=== PATIENT | male | born 1965 | race Caucasian/White ===

== ENCOUNTER → 2021-08-21 15:53 | Outpatient (BNVA) | payer OTHER, SELFPAY | PROVIDERS: PCP Physician Assistant; Referring Provider Physician Assistant; Visit Provider Nurse Practitioner Family | DX: Z12.11 Encounter for screening for malignant neoplasm of colon (principal) ==

== ENCOUNTER 2021-08-27 07:42 | Outpatient (REF) | payer OTHER, SELFPAY ==
[2021-08-27 11:33] LABS: Hematocrit 44.3 % (42.0-52.0); Mean Corpuscular HGB Conc 33.9 g/dl (31.0-36.0); Mean Corpuscular Hemoglobin 31.4 pg (27.0-33.0); Mean Corpuscular Volume 92.9 fL (80.0-98.0); Mean Platelet Volume 9.6 fL (9.4-12.4); Platelet Count 253 X10*3/uL (160-400); Red Blood Count 4.77 X10*6/uL (4.60-5.80); Red Cell Distribution Width 12.3 % (11.0-16.0); White Blood Count 4.3 X10*3/uL (4.8-10.8)
[2021-08-27 11:49] LABS: Estimated Average Glucose 100 mg/dL; Hemoglobin A1c % 5.1 %
[2021-08-27 12:07] LABS: Creatinine Urine 103.73 mg/dL; Microalbum/Creatinine Ratio Ur 6.7 ug/mg cr
[2021-08-27 12:11] LABS: Alanine Aminotransferase 46 U/L (0-40); Albumin Level 4.6 g/dL (3.5-5.0); Alkaline Phosphatase 48 U/L (39-117); Anion Gap 13 (12-20); Aspartate Amino Transferase 33 U/L (5-37); Bilirubin Total 0.6 mg/dL (0.0-1.0); Blood Urea Nitrogen 9 mg/dL (9-16); Calcium 9.4 mg/dL (8.4-10.2); Carbon Dioxide 27 mmol/L (22-29); Chloride 104 mmol/L (96-108); Cholesterol 235 mg/dL; Estimated Glomerular Filt Rate > 60; Glucose Fasting 99 mg/dL (60-99); HDL Cholesterol 68 mg/dL; LDL Cholesterol Calculated 153 mg/dl; Potassium 4.6 mmol/L (3.3-5.1); Prostate Specific Antigen Scr 0.81 ng/mL (<0.05-4.0); Sodium 139 mmol/L (135-145); TSH reflex Free T4 1.21 uIU/mL (0.32-4.0); Total Protein 7.4 g/dL (6.5-8.0); Triglycerides 73 mg/dL
== END 2021-08-27 07:43 | disposition home or self-care (01) ==
LOC: HO.HMGCLDS 07:42
PROVIDERS: Visit Provider Physician Assistant
DX: Z12.5 Encounter for screening for malignant neoplasm of prostate (principal); I10 Essential (primary) hypertension; E78.9 Disorder of lipoprotein metabolism, unspecified
CPT/HCPCS: 36415; 80053; 80061; 82043; 83036; 84153; 84443; 85027

== ENCOUNTER → 2021-11-07 14:37 | Outpatient (REF) | payer OTHER, SELFPAY ==
--- NOTE | 2021-11-07 14:43 | CA_ITS ---
Transthoracic Echocardiogram Patient (Last, First, Middle): James Way, Gender: Male Date of : 1965 Age: 56 Procedure Date: 11/07/2021 Procedure Type: Transthoracic Echocardiogram Location: OP Height: 180.34 cm Weight: 81.65 kg BSA: 2.02 m2 Heart Rate: 62 bpm BP: 134 / 74 mmHg Car Salesperson: LÁZARO Referring MD: Cholo Perry PA-C Symptoms: I38 - Endocarditis, valve unspecified, pre procedure evaluation, hx MVP/MR Study Quality: Adequate ECG Rhythm: Sinus Conclusions: - The left ventricular systolic function is normal. The calculated ejection fraction is 70% by biplane method. - The mitral valve appears myxomatous. - Posterior mitral leaflet likely prolapsing but in some views also appears flail. - There is mild to moderate mitral valve regurgitation. Findings Left Ventricle Normal left ventricular cavity size. There is normal left ventricular wall thickness. The left ventricular systolic function is normal. The calculated ejection fraction is 70% by biplane method. There is no evidence of regional wall motion abnormalities. Diastolic function is normal for age. Right Ventricle Normal right ventricular cavity size and systolic function. Atria Both atria are normal in size. Interatrial shunt cannot be excluded. Aortic Valve There is a normal trileaflet aortic valve. There is no aortic valve stenosis. There is no aortic valve regurgitation. Mitral Valve The mitral valve appears myxomatous. There is mild anterior and posterior mitral leaflet thickening. There is mild to moderate mitral valve regurgitation. The mitral regurgitation jet is directed anteriorly. There is no mitral valve stenosis. Posterior mitral leaflet likely prolapsing but in some views also appears flail. Pulmonic Valve The pulmonic valve is likely normal. Tricuspid Valve Normal tricuspid valve structure. There is trace tricuspid valve regurgitation. The pulmonary artery systolic pressure is normal. Great Vessels The aortic annulus, sinuses of valsalva, asc aorta, and aortic arch are normal in size. Venous The inferior vena cava is normal in size and collapses greater than 50% with inspiration. Pericardium/Pleural There is no evidence of pericardial effusion. Prior Study Comparison No significant change compared to prior study dated: 03/09/2018. Measurements 2D Linear Measurements IVSd: 0.82 0.6-0.9/0.6-1.0 cm LVIDd: 5.57 3.9-5.3/4.2-5.9 cm LVIDd Index: 2.76 2.4-3.2/2.2-3.1 cm/m2 LVIDs: 3.66 2.0-3.6 cm LVPWd: 0.52 0.7-1.1 cm LA Diam: 4.10 2.7-3.8/3.0-4.0 cm LAIDs Index: 2.03 1.5-2.3 cm/m2 LV Mass: 163.86 67-162/88-224 g LV Mass Index: 81.12 43-95/49-115 g/m2 LVOT Diam: 2.60 3.0+(-)1.3 cm 2D Systolic Function EF 4C: 70.50 >55% EF 2C: 68.20 >55% EF BiP: 69.90 >55% Mitral Valve MV Pk E: 1.03 MV PK A: 0.48 MV Decel Time: 175.00 E/A: 2.20 E'Lateral: 9.14 E'Medial: 7.40 E/E' Med: 13.90 E/E' Lat: 11.30 PHT: 51.00 MVA PHT: 4.31 Decel [place]: 5.91 Aortic Valve AoV Pk Elmer: 1.29 AoV Mn Elmer: 0.81 AoV VTI: 0.23 AoV Pk Grad: 7.00 Aov Mn Grad: 3.00 ALESSANDRA Cont.VTI: 4.49 LVOT LVOT Pk Elmer: 1.07 LVOT Mn Elmer: 0.65 LVOT VTI: 0.19 LVOT Pk Grad: 5.00 LVOT Mn Grad: 2.00 LVOT Diam: 2.60 LVOT Area: 5.31 Diastolic Function MV Pk E: 1.03 MV Pk A: 0.48 E/A: 2.20 E'Medial: 7.40 E/E' Med: 13.90 E' Laterial: 9.14 E/E' Lat: 11.30 Right Ventricle TAPSE (mm): 28.90 TVS' Elmer: 15.30 Tricuspid Valve RA Press: 3.00 Great Vessels Aorta Sinus of Valsalva: 3.60 2.0-3.5 cm Ao Asc: 3.20 2.1-3.4 cm Pulmonary Veins Pulm Vein S/D 1.40 Pulmonary Valve PV Pk Elmer: 1.06 Peak PV Grad: 4.00 Updated in Other Vendor System with Status of Final Chris Carmichael MD electronically signed on 11/09/2021 11:41:23 AM with status of Final
== END ==
LOC: HO.CARD 14:37
PROVIDERS: PCP Physician Assistant; Visit Provider Physician Assistant
DX: I38 Endocarditis, valve unspecified (principal); R01.1 Cardiac murmur, unspecified
CPT/HCPCS: 93306

== ENCOUNTER → 2021-12-05 09:04 | Outpatient (BNVA) | payer OTHER, SELFPAY | PROVIDERS: PCP Physician Assistant; Visit Provider Internal Medicine Cardiovascular Disease | DX: R07.9 Chest pain, unspecified (principal); I10 Essential (primary) hypertension; I34.0 Nonrheumatic mitral (valve) insufficiency; R06.09 Other forms of dyspnea | CPT/HCPCS: 93005 ==

== ENCOUNTER → 2021-12-13 07:48 | Outpatient (REF) | payer OTHER, SELFPAY ==
--- NOTE | 2021-12-13 07:50 | CA_ITS ---
Acquisition Time: 2021-12-13 08:05:05 Total Exercise Time: 00:09:51 Test Indications: CP, SOB Medications: SEE CHART Protocol: RODRIGO Max HR: 162 BPM 98% of Pred: 165 BPM Max BP: 188/088 mmHG Max Work Load: 11.4 METS Exercise stress test with exercise 9 min 51 sec of Rodrigo protocol, achieving 96% MPHR, 11.4 METs, with mild to mod sob, no chest discomfort, with isolated PVC, with normotensive response to exercise, without EKG changes meeting criteria for ischemia. Test reviewed with Dr Galvez Referred By: Lino Escoto Overread By: ANTHONY CARDOZA
== END ==
LOC: HO.CARD 07:48
PROVIDERS: Visit Provider Internal Medicine Cardiovascular Disease
DX: R06.09 Other forms of dyspnea (principal)
CPT/HCPCS: 93017

== ENCOUNTER 2022-07-12 12:13 | Day surgery (SDC) | payer OTHER, SELFPAY ==
[2022-07-09 13:47] VITALS: BMI 25.7
--- NOTE | 2022-07-11 13:17 | HO.ANESPROP2 ---
[facility] Active Problems Active Problems: All Active Problems (Updated 07/11/22 @ 11:42 by Jen Titus RN) HTN (hypertension) (Acute) Borderline high cholesterol (Acute) Alcohol use disorder, mild, abuse (Acute) Colon cancer screening (Acute) Chewing tobacco nicotine dependence (Acute) Heart murmur (Acute) Diastolic murmur (Acute) Pain, dental (Acute) Mitral regurgitation (Acute) LUNDBERG (dyspnea on exertion) (Acute) Chest pain (Acute) Annual physical exam (Acute) Family history of colon cancer (Acute) Essential hypertension (Acute) Preop cardiovascular exam (Acute) Transaminitis (Acute) Past Medical History Medical History (Updated 07/11/22 @ 13:19 by Neelima Guerra NP) Alcohol use disorder, mild, abuse Elevated cholesterol HTN (hypertension) Mitral regurgitation Osteoarthritis Transaminitis Family History Family History Brother Colon cancer Social History Social History (Updated 02/06/22 @ 16:36 by Cholo Perry PA-C) Housing: House Alcohol intake: current Alcohol intake frequency: a few times a week Alcohol type: wine and hard liquor Patient Tobacco Use Status: Former Tobacco user Tobacco use type: Smokeless Tobacco e-Cigarette/Vaping Use: Never Used Second Hand Smoke Exposure: No service: No Current occupational status: employed Cognitive needs: No Hearing needs: No Vision needs: No Meds Allergies Allergy/AdvReac Type Severity Reaction Status Date / Time No Known Allergies Allergy Verified 02/06/22 16:29 [No Known Allergies*] Exam Exam Date and Time: July 11, 2022 1317 Height,Weight and Vital Signs: Height 5 ft 11 in Weight 83.915 kg Narrative Narrative: EKG 11/2021 Sinus bradycardia 57 beats per minute, normal axis, T-wave inversions in inferior leads, QT interval 459 milliseconds Echo: 11/07/21 - - The left ventricular systolic function is normal.? The ? calculated ejection fraction is 70% by biplane method. ? - The mitral valve appears myxomatous. ? - Posterior mitral leaflet likely prolapsing but in some views ? also appears flail.? - There is mild to moderate mitral valve regurgitation.? Stress 12/13/21: Protocol: ALBERT ? Max HR: 162 BPM? 98% of? Pred: 165 BPM Max BP: 188/088 mmHG Max Work Load: 11.4 METS ? Exercise stress test with exercise 9 min 51 sec of Albert protocol, achieving 96% ?MPHR, 11.4 METs, with mild to mod sob, no chest discomfort, with isolated PVC, ?with normotensive response to exercise, without EKG changes meeting criteria ?for ischemia. Test reviewed with Dr Galvez Assessment and Plan Assessment Anesthesia Assessment: Chart Reviewed
[2022-07-12] MEDS: Lactated Ringers 1,000 ML 100 ML IVCONT (12:48)
--- NOTE | 2022-07-12 12:55 | MHC.SHP ---
Pre-Procedural Eval Section A Date of Service: 07/12/22 The patient is an INPATIENT: No The History & Physical has been completed within 30 days and I have reviewed it.: No Section B Chief Complaint: screening Details of Present Illness: Colon cancer screening, family history of colon cancer Relevant Family History (Specify if Yes): Yes Relevant Social History: Tobacco Use Present Medications: see Short Stay Collaborative assessment Medical History: Significant History ( transaminitis, hypertension, mitral regurgitation) History of Previous Operations: No relevant previous surgery Allergies: Allergies Allergy/AdvReac Type Severity Reaction Status Date / Time No Known Allergies Allergy Verified 02/06/22 16:29 [No Known Allergies*] Review of Systems Sugical H&P ROS: Negative: Constitution, Cardiovascular, Respiratory and Gastrointestinal Exam Surgical H&P Exam: Normal: Heart, Normal: Lungs, Normal: Extremities and Normal: Abdomen Plan Diagnosis/Plan: Unchanged I have reviewed the history and physical and performed a pertinent physical examination on my patient. No changes have occurred unless specified. Time Spent With Patient Time: Total time managing care of this patient today ____ minutes.
[2022-07-12 12:57] VITALS: BP 157/92; PULSE 73; RESP 18; TEMP 36.7; O2SAT 97
--- NOTE | 2022-07-12 13:06 | PC.NURSE ---
IV inserted by amee whitmore rn
--- NOTE | 2022-07-12 13:32 | PC.NURSE ---
Patient admits to drinking approx. 4-5 alcoholic drinks (beer/wine) daily. He states that he has not had any since Friday. Patient states I actually feel really good. VS wnl. No shaking or hallucinating noted. alert and oriented X 3. No ciwa intervention available to add.
--- NOTE | 2022-07-12 13:44 | P.OP_ITS ---
Operative Note Operative Note Date of Service: 07/12/22 Narrative: COLONOSCOPY TILL CECUM WITH BIOPSIES AND SNARE POLYPECTOMY Indication:? Colon cancer screening, FH of colon cancer (brother at age 50 yrs) Endoscopist:? Tesha Dominguze MD Anesthesia Provider:?Dr Dunn Anesthesia type:?MAC Consent: Indications for the procedure and potential complications of bleeding, perforation, reaction to medications and missed diagnosis were discussed with the patient and informed consent was obtained. Instrument: Olympus PCF H 190 L variable stiffness pediatric colonoscope Monitoring: Vital signs and clinical assessment, intermittent blood pressure monitoring, continuous EKG monitoring, Pulse oximetry and Carbon Dioxide monitoring were done throughout the procedure. Please see anesthesia flowsheet. Colon withdrawl time was 28 minutes. Procedure: The patient was placed in the left lateral decubitis position and pre-procedure medications were administered. After a digital rectal examination of the ano-rectum, the video colonoscope was inserted into the rectum and advanced through the colon to the cecum. The colonoscope was slowly withdrawn in a retrograde panoramic fashion and the colon mucosa was carefully examined including a retroflexed view of the rectum. Findings and interventions are described below. Procedure Difficulty: Without difficulty Findings: Terminal Ileum: Not evaluated Cecum: Normal Ascending Colon: Normal Transverse Colon: Two 3-5 mm sessile polyps - removed with a cold biopsy Descending Colon: Normal Sigmoid Colon: Two 4-5 mm sessile polyps - removed with a cold biopsy. A 10 - 12 mm sessile polyp - removed with a cold snare Moderate diverticulosis Rectum: Normal Ano-rectum: Moderate internal hemorrhoids Colon preparation: Good after copious irrigation Impression and Post Procedure Diagnosis: Colonoscopy Findings: Four small and one medium sized polyps removed Moderate diverticulosis seen in the sigmoid colon Moderate hemorrhoids on retroflexed exam. Plan: Await pathology results Patient has an appointment on 07/26/22 in the GI [facility] with Nesha Ramírez FNP- BC . Repeat Colonoscopy interval based on path results - in 3-5 years if polyps are adenomatous and 10 years if polyps are hyperplastic. Colon polyps and diverticulosis handouts were given in the discharge area PATHOLOGY: A- TRANSVERSE COLON POLYPS B- SIGMOID POLYPS
--- NOTE | 2022-07-12 13:45 | HO.ANESPROP2 ---
HPI - Anesthesia Eval Consult details Narrative: for colonoscopy [facility] Active Problems Active Problems: All Active Problems (Updated 07/11/22 @ 13:19 by Neelima Guerra NP) Alcohol use disorder, mild, abuse (Acute) HTN (hypertension) (Acute) Borderline high cholesterol (Acute) Colon cancer screening (Acute) Chewing tobacco nicotine dependence (Acute) Heart murmur (Acute) Diastolic murmur (Acute) Pain, dental (Acute) LUNDBERG (dyspnea on exertion) (Acute) Chest pain (Acute) Annual physical exam (Acute) Family history of colon cancer (Acute) Essential hypertension (Acute) Preop cardiovascular exam (Acute) Transaminitis (Acute) Past Medical History Medical History (Updated 07/11/22 @ 13:19 by Neelima Guerra NP) Alcohol use disorder, mild, abuse Elevated cholesterol HTN (hypertension) Mitral regurgitation Osteoarthritis Transaminitis Narrative: still drinks 4-5/ day. Family History Family History Brother Colon cancer Family history of problems with anesthesia: No Surgical History History of Problems with Anesthesia: No Social History Social History (Updated 02/06/22 @ 16:36 by Cholo Perry PA-C) Housing: House Alcohol intake: current Alcohol intake frequency: a few times a week Alcohol type: wine and hard liquor Patient Tobacco Use Status: Former Tobacco user Tobacco use type: Smokeless Tobacco e-Cigarette/Vaping Use: Never Used Second Hand Smoke Exposure: No Are you DNR?: No Advance Directives: No Advance Directives Information Provided: Yes Nutrition Risks: No Nutritional Risk service: No Current occupational status: employed Cognitive needs: No Hearing needs: No Vision needs: No Meds Allergies Allergy/AdvReac Type Severity Reaction Status Date / Time No Known Allergies Allergy Verified 02/06/22 16:29 [No Known Allergies*] Active Medications: Current Medications Lactated Ringer's (Lr) 1,000 mls @ 100 mls/hr IVCONT .Q10H POLO Last Admin: 07/12/22 12:48 Dose: 100 mls/hr Exam Exam Date and Time: July 12, 2022 1345 Height,Weight and Vital Signs: Height 5 ft 11 in Weight 83.915 kg Last Vital Signs Temp 98.1 F 07/12/22 12:57 Pulse 73 07/12/22 12:57 Resp 18 07/12/22 12:57 BP 157/92 H 07/12/22 12:57 Pulse Ox 97 07/12/22 12:57 O2 Del Method Room Air 07/12/22 12:57 Airway Mallampati Class: I TM Dist: >3cm Neck ROM: Full Heart: ok Lungs: ok Assessment and Plan Assessment Anesthesia Assessment: Anesthesia Plan Discussed and Chart Reviewed Final Anesthetic Review Family History of Problems with Anesthesia: No History of Problems with Anesthesia: No NPO: Yes ASA Class: III Final Preanesthetic Review: No Changes in Pt Med Stat, Meds/Allgs Chart Reviewed, Consent Obtained/Reviewed and Anes Risks/Benef Reviewed Patient Risk: Intermediate Procedure Risk: Low Anesthetic Plan Anesthetic Plan: MAC: and Agree w/ Assess. and Plan Disposition: Standard PACU
[2022-07-12 14:48] VITALS: BP 109/73; PULSE 82; RESP 20; TEMP 36.3; O2SAT 98
[2022-07-12 15:03] VITALS: BP 132/80; PULSE 64; RESP 16; TEMP 36.9; O2SAT 98
== END 2022-07-12 15:22 | disposition home or self-care (01) ==
PROVIDERS: PCP Physician Assistant; Visit Provider Internal Medicine Gastroenterology
PROC: 0DJD8ZZ Inspection of Lower Intestinal Tract, Via Natural or Artificial Opening Endoscopic (ICD-10-PCS; CPT 45378; principal; 2022-07-12 13:40)
DX: Z12.11 Encounter for screening for malignant neoplasm of colon (principal); Z80.0 Family history of malignant neoplasm of digestive organs; K63.5 Polyp of colon; K57.30 Diverticulosis of large intestine without perforation or abscess without bleeding; K64.8 Other hemorrhoids; R74.01 Elevation of levels of liver transaminase levels; I10 Essential (primary) hypertension; I34.0 Nonrheumatic mitral (valve) insufficiency; R01.1 Cardiac murmur, unspecified; F10.10 Alcohol abuse, uncomplicated; Z79.899 Other long term (current) drug therapy; Z72.0 Tobacco use
CPT/HCPCS: 45385; 45380; 88305

== ENCOUNTER → 2022-08-02 13:53 | Outpatient (BNVA) | payer OTHER, SELFPAY | PROVIDERS: PCP Physician Assistant; Visit Provider Nurse Practitioner Family | DX: Z13.89 Encounter for screening for other disorder (principal) ==

== ENCOUNTER 2022-08-04 16:23 | Emergency (ER) | payer OTHER, SELFPAY ==
--- NOTE | ~2022-08-04 | XR_ITS ---
EXAMINATION: XR ABDOMEN KUB CLINICAL INDICATION: Constipation COMPARISON: None available. TECHNIQUE: AP view of the abdomen. FINDINGS: The bowel gas pattern is normal with no evidence of ileus or obstruction. No unusual soft tissue calcifications are noted. The bones are unremarkable. XR/XR KUB IMPRESSION: Unremarkable bowel gas pattern.
[2022-08-04 16:50] VITALS: BP 124/83; PULSE 80; RESP 18; TEMP 36.4; O2SAT 96; BMI 24.8
--- NOTE | 2022-08-04 16:53 | ED_ITS ---
HPI - General Adult General Chief complaint: Nausea/Vomiting/Diarrhea <Russel Obrien - Last Filed: 08/04/22 16:54> Stated complaint: vomiting <Russel Obrien - Last Filed: 08/04/22 16:54> Time Seen by Provider: 08/04/22 18:31 <Russel Obrien - Last Filed: 08/04/22 16:54> Source: patient <Rich Albert MD - Last Filed: 08/04/22 20:45> Mode of arrival: ambulatory <Rich Albert MD - Last Filed: 08/04/22 20:45> Limitations: no limitations <Rich Albert MD - Last Filed: 08/04/22 20:45> History of Present Illness HPI narrative: Patient alcoholic comes here for increased fatigue and weight loss about 10 lb in last 1 month. Patient was seen by wastewater process engineer 2 days ago advised to take more fiber for his bowel regularity. According to records patient weight was 82 kg in 08/03 and today's 80.7 kg no significant weight loss. Patient denies any loss of appetite eating well patient's girlfriend is concerned patient drinks alcohol every day noted to have elevated liver functions also complaining of nausea no significant abdominal pain having regular bowel movements most of the time they are loose <Rich Albert MD - Last Filed: 08/04/22 20:45> Related Data Home medications: Previous Rx's Medication Instructions Recorded lisinopril 20 1 tab PO DAILY 90 days #90 tabs 02/06/22 mg-hydrochlorothiazide 12.5 mg tablet methylcellulose (laxative) 500 mg 500 mg PO DAILY #90 tabs 08/02/22 tablet (Citrucel) ondansetron 4 mg disintegrating 4 mg PO Q6-8H PRN nausea and 08/04/22 tablet vomiting #10 tabs pantoprazole 40 mg tablet,delayed 40 mg PO DAILY #30 tabs 08/04/22 release (Protonix) <Russel Obrien - Last Filed: 08/04/22 16:54> Allergies/adverse reactions: Allergies Allergy/AdvReac Type Severity Reaction Status Date / Time No Known Allergies Allergy Verified 08/04/22 16:50 [No Known Allergies*] <Russel Obrien - Last Filed: 08/04/22 16:54> Review of Systems Review of Systems: Yes all other systems are reviewed and are negative <Rich Albert MD - Last Filed: 08/04/22 20:45> [facility] Past Medical History Medical History: Medical History Alcohol use disorder, mild, abuse Elevated cholesterol HTN (hypertension) Mitral regurgitation Osteoarthritis Transaminitis <Russel Obrien - Last Filed: 08/04/22 16:54> Surgical History: Surgical History Hx of colonoscopy <Russel Obrien - Last Filed: 08/04/22 16:54> Family History Family History: Family History Brother Colon cancer <Russel Obrien - Last Filed: 08/04/22 16:54> Social History Social History: Social History Housing: House Alcohol intake: current Alcohol intake frequency: 3 or more drinks per day Alcohol type: wine and hard liquor Patient Tobacco Use Status: Former Tobacco user Tobacco use type: Smokeless Tobacco Smoked in Last 30 Days: No e-Cigarette/Vaping Use: Never Used Second Hand Smoke Exposure: No Use of substances other than those prescribed or required for medical reasons: No Advance Directives: No Advance Directives Information Provided: Yes service: No Current occupational status: employed Cognitive needs: No Hearing needs: No Vision needs: No <Russel Obrien - Last Filed: 08/04/22 16:54> Physical Exam ED Vital Signs: Vital Signs - 24 hr 08/04/22 16:50 08/04/22 18:00 Temperature 97.5 F 98.3 F Pulse Rate 80 70 Respiratory Rate 18 18 Blood Pressure 124/83 140/89 H Pulse Oximetry 96 96 Oxygen Delivery Method Room Air Room Air BMI result Body Mass Index 24.8 <Russel Obrien - Last Filed: 08/04/22 16:54> Vital Signs - 24 hr 08/04/22 16:50 08/04/22 18:00 Temperature 97.5 F 98.3 F Pulse Rate 80 70 Respiratory Rate 18 18 Blood Pressure 124/83 140/89 H Pulse Oximetry 96 96 Oxygen Delivery Method Room Air Room Air BMI result Body Mass Index 24.8 <Rich Albert MD - Last Filed: 08/04/22 20:45> Appearance: Alert. Oriented X3. No acute distress. Eyes: PERRLA, No Nystagmus no pallor or icterus ENT: Pharynx normal. Oral Mucosa moist Neck: Normal inspection. Neck supple. CVS: Normal heart rate and rhythm. Pulses normal. Respiratory: No respiratory distress. Equal air entry bilateral, no wheezing/rales/rhonchi Abdomen: Soft and nontender. Bowel sounds are present, no mass palpable, no CVA tenderness Skin: Skin warm and dry. Normal skin color. Normal skin turgor. Extremities: No lower extremity edema. No calf tenderness Neuro: Oriented X 3. No motor deficit. No sensory deficit.No cerebellar signs , cranial nerves II-XII intact <Rich Albert MD - Last Filed: 08/04/22 20:45> Course Course Course Narrative: This 56-year-old male presents for evaluation of vomiting every morning for the last month. He denies any sharp pains. He follows with GI and had a colonoscopy 2 weeks ago but did not mention his current issues. Reports a 10 lb weight loss in the last month. The colonoscopy was due to a family history of colon cancer and was routine. Plan for labs, UA and further workup as indicated <Russel Obrien - Last Filed: 08/04/22 16:54> Medical Decision Making Medical Decision Making MDM Narrative: Patient with alcohol use disorder with slightly elevated liver function tests suggestive of alcoholic hepatitis. Patient advised to stop drinking will prescribe Zofran and Protonix for alcoholic gastritis advised to follow with GI <Rich Albert MD - Last Filed: 08/04/22 20:45> Lab Data [facility] Lab Attestation statement: I reviewed the patient's lab results. <Rich Albert MD - Last Filed: 08/04/22 20:45> Result Diagrams: 08/04/22 17:21 08/04/22 17:21 <Russel Obrien - Last Filed: 04/23/23 16:54> Labs: Lab Results 08/04/22 08/04/22 Range/Units 17:21 17:21 WBC 5.3 (4.8-10.8) X10*3/uL RBC 4.53 L (4.60-5.80) X10*6/uL Hgb 14.8 (14.0-18.0) g/dl Hct 42.6 (42.0-52.0) % MCV 94.0 (80.0-98.0) fL MCH 32.7 (27.0-33.0) pg MCHC 34.7 (31.0-36.0) g/dl RDW 12.7 (11.0-16.0) % Plt Count 208 (160-400) X10*3/uL MPV 8.8 L (9.4-12.4) fL Immature Gran % (Auto) 0.2 (0.0-0.4) % Neut % (Auto) 44.8 L (45-73) % Lymph % (Auto) 42.3 H (20-40) % [place] % (Auto) 9.6 (2-11) % Eos % (Auto) 2.3 (0-4) % Baso % (Auto) 0.8 (0-2) % Lymph # (Auto) 2.3 (1.2-4.9) X10*3/uL [place] # (Auto) 0.5 (0.1-1.2) X10*3/uL Eos # (Auto) 0.1 (0.0-0.4) X10*3/uL Baso # (Auto) 0.0 (0.0-0.2) X10*3/uL Abs Immat Gran (auto) 0.01 (0.00-0.03) X10*3/uL Absolute Neuts (auto) 2.4 (2.0-8.3) x10*3/uL Absolute Nucleated RBC 0.000 (0.0-0.012) X10*3/uL Nucleated RBC % (auto) 0.0 (0.0-0.2) /100WBC Sodium 139 (135-145) mmol/L Potassium 4.2 (3.3-5.1) mmol/L Chloride 104 (96-108) mmol/L Carbon Dioxide 26 (22-29) mmol/L Anion Gap 13 (12-20) BUN 14 (9-16) mg/dL Creatinine 0.89 (0.5-1.4) mg/dL Estim Creat Clear Calc 99.8 Estimated GFR > 60 Random Glucose 99 (60-115) mg/dL Calcium 8.7 D (8.4-10.2) mg/dL Total Bilirubin 0.5 (0.0-1.0) mg/dL AST 192 H (5-37) U/L ALT 122 H (0-40) U/L Alkaline Phosphatase 62 (39-117) U/L Total Protein 6.7 (6.5-8.0) g/dL Albumin 4.2 (3.5-5.0) g/dL Lipase 63 (8-78) U/L <Russel Obrien - Last Filed: 08/04/22 16:54> Lab Results 08/04/22 08/04/22 Range/Units 17:21 17:21 WBC 5.3 (4.8-10.8) X10*3/uL RBC 4.53 L (4.60-5.80) X10*6/uL Hgb 14.8 (14.0-18.0) g/dl Hct 42.6 (42.0-52.0) % MCV 94.0 (80.0-98.0) fL MCH 32.7 (27.0-33.0) pg MCHC 34.7 (31.0-36.0) g/dl RDW 12.7 (11.0-16.0) % Plt Count 208 (160-400) X10*3/uL MPV 8.8 L (9.4-12.4) fL Immature Gran % (Auto) 0.2 (0.0-0.4) % Neut % (Auto) 44.8 L (45-73) % Lymph % (Auto) 42.3 H (20-40) % [place] % (Auto) 9.6 (2-11) % Eos % (Auto) 2.3 (0-4) % Baso % (Auto) 0.8 (0-2) % Lymph # (Auto) 2.3 (1.2-4.9) X10*3/uL [place] # (Auto) 0.5 (0.1-1.2) X10*3/uL Eos # (Auto) 0.1 (0.0-0.4) X10*3/uL Baso # (Auto) 0.0 (0.0-0.2) X10*3/uL Abs Immat Gran (auto) 0.01 (0.00-0.03) X10*3/uL Absolute Neuts (auto) 2.4 (2.0-8.3) x10*3/uL Absolute Nucleated RBC 0.000 (0.0-0.012) X10*3/uL Nucleated RBC % (auto) 0.0 (0.0-0.2) /100WBC Sodium 139 (135-145) mmol/L Potassium 4.2 (3.3-5.1) mmol/L Chloride 104 (96-108) mmol/L Carbon Dioxide 26 (22-29) mmol/L Anion Gap 13 (12-20) BUN 14 (9-16) mg/dL Creatinine 0.89 (0.5-1.4) mg/dL Estim Creat Clear Calc 99.8 Estimated GFR > 60 Random Glucose 99 (60-115) mg/dL Calcium 8.7 D (8.4-10.2) mg/dL Total Bilirubin 0.5 (0.0-1.0) mg/dL AST 192 H (5-37) U/L ALT 122 H (0-40) U/L Alkaline Phosphatase 62 (39-117) U/L Total Protein 6.7 (6.5-8.0) g/dL Albumin 4.2 (3.5-5.0) g/dL Lipase 63 (8-78) U/L <Rich Albert MD - Last Filed: 08/04/22 20:45> Discharge Plan Discharge Clinical Impression: Alcoholic liver disease <Russel Obrien - Last Filed: 08/04/22 16:54> Patient Disposition: Home, Self-Care <Russel Obrien - Last Filed: 08/04/22 16:54> Instructions: Alcohol Use Disorder (ED), Alcoholic Hepatitis (ED) <Russel Obrien - Last Filed: 08/04/22 16:54> Additional Instructions: Stop drinking alcohol Follow-up with your gastroenterology Medicine for nausea as prescribed <Russel Obrien - Last Filed: 08/04/22 16:54> Prescriptions: New pantoprazole [Protonix] 40 mg tablet,delayed release (DR/EC) 40 mg PO DAILY Qty: 30 0RF ondansetron 4 mg tablet,disintegrating 4 mg PO Q6-8H PRN (Reason: nausea and vomiting) Qty: 10 0RF No Action lisinopril-hydrochlorothiazide 20-12.5 mg tablet 1 tab PO DAILY 90 Days Qty: 90 2RF Citrucel 500 mg tablet 500 mg PO DAILY Qty: 90 3RF Rx Instructions: take it with full glass of water <Russel Obrien - Last Filed: 08/04/22 16:54> Interventions: ED Discharge Assessment Last Done: 08/04/22 20:37 <Russel Obrien - Last Filed: 08/04/22 16:54> Discharge Date/Time: 08/04/22 20:37 <Russel Obrien - Last Filed: 08/04/22 16:54>
[2022-08-04 17:28] LABS: MANUAL DIFF FLAG NO
[2022-08-04 17:29] LABS: Basophils Percent Auto 0.8 % (0-2); Eosinophils Absolute Auto 0.1 X10*3/uL (0.0-0.4); Eosinophils Percent Auto 2.3 % (0-4); Hematocrit 42.6 % (42.0-52.0); Hemoglobin 14.8 g/dl (14.0-18.0); Imm Gran Abs Auto 0.01 X10*3/uL (0.00-0.03); Imm Gran Pct Auto 0.2 % (0.0-0.4); Lymphocytes Absolute Auto 2.3 X10*3/uL (1.2-4.9); Lymphocytes Percent Auto 42.3 % (20-40); Mean Corpuscular HGB Conc 34.7 g/dl (31.0-36.0); Mean Corpuscular Hemoglobin 32.7 pg (27.0-33.0); Mean Platelet Volume 8.8 fL (9.4-12.4); Monocytes Absolute Auto 0.5 X10*3/uL (0.1-1.2); Monocytes Percent Auto 9.6 % (2-11); Neutrophils Absolute Auto 2.4 x10*3/uL (2.0-8.3); Neutrophils Percent Auto 44.8 % (45-73); Platelet Count 208 X10*3/uL (160-400); Red Blood Count 4.53 X10*6/uL (4.60-5.80); Red Cell Distribution Width 12.7 % (11.0-16.0); White Blood Count 5.3 X10*3/uL (4.8-10.8)
[2022-08-04 17:48] LABS: Alanine Aminotransferase 122 U/L (0-40); Albumin Level 4.2 g/dL (3.5-5.0); Alkaline Phosphatase 62 U/L (39-117); Anion Gap 13 (12-20); Aspartate Amino Transferase 192 U/L (5-37); Bilirubin Total 0.5 mg/dL (0.0-1.0); Blood Urea Nitrogen 14 mg/dL (9-16); Calcium 8.7 mg/dL (8.4-10.2); Carbon Dioxide 26 mmol/L (22-29); Chloride 104 mmol/L (96-108); Creatinine Clr Calc Pharmacy 99.8; Estimated Glomerular Filt Rate > 60; Glucose Random 99 mg/dL (60-115); Lipase 63 U/L (8-78); Potassium 4.2 mmol/L (3.3-5.1); Sodium 139 mmol/L (135-145); Total Protein 6.7 g/dL (6.5-8.0)
[2022-08-04 18:00] VITALS: BP 140/89; PULSE 70; RESP 18; TEMP 36.8; O2SAT 96
--- NOTE | 2022-08-04 18:47 | PC.NURSE ---
pt AOx3, reporting nausea x1 month and chronic diarrhea. imaging ordered. Vitals stable.
== END 2022-08-04 20:37 | disposition home or self-care (01) ==
PROVIDERS: Physician Assistant; Emergency Provider Internal Medicine; PCP Physician Assistant
DX: K70.9 Alcoholic liver disease, unspecified (principal); R79.89 Other specified abnormal findings of blood chemistry; R11.2 Nausea with vomiting, unspecified; R10.9 Unspecified abdominal pain; R53.83 Other fatigue; Z87.891 Personal history of nicotine dependence; Z79.899 Other long term (current) drug therapy
CPT/HCPCS: 36415; 74018; 80053; 83690; 85025; 99284

== ENCOUNTER 2022-09-06 06:39 | Outpatient (REF) | payer OTHER, SELFPAY ==
[2022-09-06 11:37] LABS: Hematocrit 44.8 % (42.0-52.0); Hemoglobin 14.9 g/dl (14.0-18.0); Mean Corpuscular HGB Conc 33.3 g/dl (31.0-36.0); Mean Corpuscular Volume 96.3 fL (80.0-98.0); Mean Platelet Volume 10.1 fL (9.4-12.4); Platelet Count 235 X10*3/uL (160-400); Red Blood Count 4.65 X10*6/uL (4.60-5.80); Red Cell Distribution Width 11.9 % (11.0-16.0)
[2022-09-06 11:54] LABS: Alanine Aminotransferase 33 U/L (0-40); Albumin Level 4.3 g/dL (3.5-5.0); Alkaline Phosphatase 55 U/L (39-117); Anion Gap 13 (12-20); Aspartate Amino Transferase 24 U/L (5-37); Bilirubin Direct 0.1 mg/dL (0.0-0.5); Bilirubin Total 0.5 mg/dL (0.0-1.0); Blood Urea Nitrogen 7 mg/dL (9-16); Calcium 9.7 mg/dL (8.4-10.2); Carbon Dioxide 27 mmol/L (22-29); Chloride 105 mmol/L (96-108); Cholesterol 242 mg/dL; Estimated Glomerular Filt Rate > 60; Glucose Fasting 110 mg/dL (60-99); HDL Cholesterol 50 mg/dL; LDL Cholesterol Calculated 176 mg/dl; Potassium 4.5 mmol/L (3.3-5.1); Sodium 140 mmol/L (135-145); Triglycerides 82 mg/dL
[2022-09-06 12:11] LABS: Prostate Specific Antigen Scr 0.75 ng/mL (<0.05-4.0)
[2022-09-06 12:20] LABS: Creatinine Urine 208.82 mg/dL; Microalbum/Creatinine Ratio Ur 6.2 ug/mg cr
== END 2022-09-06 06:40 | disposition home or self-care (01) ==
LOC: HO.HMGCLDS 06:39
PROVIDERS: PCP Physician Assistant; Visit Provider Physician Assistant
DX: I10 Essential (primary) hypertension (principal); E78.9 Disorder of lipoprotein metabolism, unspecified; F10.10 Alcohol abuse, uncomplicated; Z12.5 Encounter for screening for malignant neoplasm of prostate
CPT/HCPCS: 36415; 80053; 80061; 80076; 82043; 82248; 84153; 84443; 85027

== ENCOUNTER 2023-03-03 13:11 | Outpatient (AMB) | payer OTHER, SELFPAY ==
--- NOTE | 2023-03-03 13:22 | AM.OFFWIN_ITS ---
Intake Vital Signs 03/03/23 13:23 Height 5 ft 11 in Weight 184 lb BMI 25.7 BP 156/88 H Blood Pressure Location Lt brachial Position Sitting Pulse 80 Pulse Source Pulse Oximeter Temp 97.6 F Temp Source Temporal Artery Scan Pulse Oximetry (%) 98 Oxygen Delivery Method Room Air Intake Visit Reasons: EP, congestion, cough ([phone]) Intake Note: pt is here for c/o cough and congestion, with chest congestion Patient Tobacco Use Status: Former Tobacco user Allergies No Known Allergies [No Known Allergies*] Allergy (Verified 03/03/23 13:23) Do you need a note to return to daycare/school/sports/work: Yes HPI EP, congestion, cough ([phone]) HPI Details 57-year-old male patient presents today for a sick visit. He reports a 1 week history of worsening cough, now with yellow sputum. States he has been taking lhwa-ojl-rkomwdz Mucinex without relief. Denies any fever or chills. Denies any GI symptoms. Has noted now he is getting a sore throat and some bilateral ear pain. COVID tests x3 at home have been negative. Denies any known exposure to sick contacts. Denies any shortness of breath, chest pain, wheezing. [facility], LATER [facility] Medical History Osteoarthritis Elevated cholesterol HTN (hypertension) Mitral regurgitation Transaminitis Alcohol use disorder, mild, abuse Surgical History Hx of colonoscopy Family History Brother Colon cancer Social History Housing: House Alcohol intake: former Year quit: 2022 Patient Tobacco Use Status: Former Tobacco user Tobacco use type: Smokeless Tobacco e-Cigarette/Vaping Use: Never Used Second Hand Smoke Exposure: No service: No Current occupational status: employed Current occupational exposures/hazards: No Cognitive needs: No Hearing needs: No Vision needs: No Review of Systems Const All systems reviewed & are unremarkable except as noted in HPI and below Physical Exam Vital Signs: Last Vital Signs Temp 97.6 F 03/03/23 13:23 Pulse 80 03/03/23 13:23 BP 156/88 H 03/03/23 13:23 Pulse Ox 98 03/03/23 13:23 Oxygen Delivery Method Room Air 03/03/23 13:23 BMI result Body Mass Index 25.7 Const General: cooperative and no acute distress HEENT Head: Yes normal to inspection and Yes normocephalic Ears: hearing grossly normal bilaterally, external ears normal and TM's normal bilaterally General nose exam: Normal external nose present, Normal nares present and Normal nasal mucous membranes and turbinates present Face and sinus: Yes sinuses nontender Mouth: Normal oral and palatal mucosa present and moist mucous membranes Throat: Yes posterior oropharynx abnormal (Mild erythema) and Yes tonsils absent Neck Neck: Yes no lymphadenopathy Resp Effort & Inspection: normal respiratory effort, able to speak in complete sentences and Actively coughing Quality: productive Auscultation: rhonchi (otherwise clear) upper bilaterally Cardio Jugular venous distension: no JVD Palpation: normal PMI Rate: regular rate Rhythm: regular rhythm Skin General skin exam: no rashes or lesions noted Extrem General: Yes capillary refill normal and Yes no clubbing, cyanosis or edema Psych Appearance: grossly normal Mental Status: mental status grossly normal Speech and movement: Normal speech and movement present Assessment & Plan Assessment & Plan (1) Upper respiratory infection: Code(s): J06.9 - Acute upper respiratory infection, unspecified Qualifiers: URI type: unspecified URI Qualified Code(s): J06.9 - Acute upper respiratory infection, unspecified Plan: Will start patient on azithromycin, and benzonatate. Reviewed indications, use, possible side effects of these medications. Encourage continued rest and adequate hydration. If he develops any worsening symptoms, or if he does not improve with time and treatment, he should return to the clinic for further evaluation. He verbalizes understanding and agrees to plan. He declined viral testing today. Medications: New benzonatate 100 mg PO BID PRN 14 caps 0RF cough 7 days R05.9 - Cough, unspecified azithromycin For 250 mg dose pack: take 500 mg today (day 1), then 250 mg for 4 days (days 2-5) orally; 6 tabs 0RF J06.9 - Acute upper respiratory infection, unspecified Coding Level of Care Code Est Pt Level 3 (95679) Diagnoses Upper respiratory tract infection, unspecified type J06.9 URI type: unspecified URI
[2023-03-03 13:23] VITALS: BP 156/88; PULSE 80; TEMP 36.4; O2SAT 98; BMI 25.7
== END 2023-03-03 14:12 | disposition home or self-care (01) ==
PROVIDERS: PCP Physician Assistant; Visit Provider Nurse Practitioner Family
DX: J06.9 Acute upper respiratory infection, unspecified (principal)
CPT/HCPCS: 99213

== ENCOUNTER 2023-04-30 13:50 | Outpatient (AMB) | payer OTHER, SELFPAY ==
[2023-04-30 13:56] VITALS: BP 130/80; PULSE 75; BMI 25.7
--- NOTE | 2023-04-30 13:56 | A.OFFVIS_ITS ---
Intake Vital Signs 04/30/23 13:56 Height 5 ft 11 in Weight 184 lb 4.903 oz BMI 25.7 BP 130/80 Blood Pressure Location Lt brachial Position Sitting Pulse 75 Intake Visit Reasons: 1 yr f/up Intake Note: 1 yr f/up pt its feeling fine. 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 He has background history of hypertension and has been on lisinopril and hydrochlorothiazide. He is a former smoker and was chewing tobacco before but has quit tobacco use. He is saying he had a heart murmur for long time. 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 He does not do significant physical work now. 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 Occasionally when he is going up hill he gets really winded and gets chest discomfort. Is saying he feels a pressure-like feeling in his chest. On plain surface he does not get significant symptoms. No other issues right now. His brother had colon cancer and he needs a screening colonoscopy. He underwent stress testing as below and did well. He did not develop any chest discomfort with exertion. He is here for follow-up. Overall doing well. He is asking whether he can proceed with colonoscopy. 04/30/23: He underwent stress testing an d echocardiography. ECHO showed [id number]-cj-[id number] mitral valve regurgitation with myxomatous valve. Stress test was good. He underwent colonoscopy. He is now returning for follow-up. No new symptoms. His EKG showing slightly prolonged QT interval of 486. He said he was drinking somewhat heavily but has cut back significantly now. He has not had any recent blood workup. [facility] Medical History (Updated 04/30/23 @ 14:26 by Lino Escoto MD) Mitral regurgitation Osteoarthritis Elevated cholesterol HTN (hypertension) Transaminitis Alcohol use disorder, mild, abuse Surgical History Hx of colonoscopy Family History Brother Colon cancer Social History Housing: House Alcohol intake: former Year quit: 2022 Patient Tobacco Use Status: Former Tobacco user Tobacco use type: Smokeless Tobacco e-Cigarette/Vaping Use: Never Used Second Hand Smoke Exposure: No service: No Current occupational status: employed Current occupational exposures/hazards: No Cognitive needs: No Hearing needs: No Vision needs: No Review of Systems Const Reports chills, Reports fatigue, Reports fever(s), Reports frequent falls, Reports weakness, Reports weight gain and Reports weight loss ENT Reports dizziness Card Reports chest pain, Reports leg edema, Reports lightheadedness, Reports palpitations, Reports dyspnea and Reports dyspnea on exertion Resp Reports cough, Reports dyspnea and Reports dyspnea on exertion GI Reports hematochezia Musc Reports abnormal gait, Reports muscle weakness, Reports numbness, Reports radiating pain into limb and Reports tingling Neuro Reports abnormal gait, Reports dizziness, Reports frequent falls, Reports numbness, Reports tingling and Reports weakness Endo Reports fatigue and Reports palpitations Physical Exam Vital Signs: Last Vital Signs Pulse 75 04/30/23 13:56 BP 130/80 04/30/23 13:56 BMI result Body Mass Index 25.7 GENERAL APPEARANCE: in no acute distress, pleasant. NECK: no carotid bruit, no jugular venous distention. SKIN: no suspicious lesions, warm and dry. HEART: Holosystolic murmur at the apex, regular rate and rhythm. LUNGS: clear to auscultation bilaterally. ABDOMEN: soft, nontender. EXTREMITIES: no edema. PERIPHERAL PULSES: equal. NEUROLOGIC: No gross deficits, AAO X 3 Office Procedures EKG Details: Sinus rhythm 75 beats per minute, normal axis, nonspecific T-wave changes, QTC 486 milliseconds. [id number]-Xzeuryjfizrndjavz, Complete Assessment & Plan Assessment & Plan (1) HTN (hypertension): Code(s): I10 - Essential (primary) hypertension Qualifiers: Hypertension type: primary hypertension Qualified Code(s): I10 - Essential (primary) hypertension (2) Mitral regurgitation: Code(s): I34.0 - Nonrheumatic mitral (valve) insufficiency (3) Prolonged QT interval: Code(s): R94.31 - Abnormal electrocardiogram [ECG] [EKG] Plan 57 year gentleman here for follow-up. He has background history of myxomatous mitral valve with [id number]-[id number] mitral valve regurgitation. Clinically stable and not in heart failure and has no significant symptoms. We will repeat echocardiography to reassess the mitral valve. I have discussed with him about symptoms of valvular disease and in case he has any of those developing he will call us. His EKGs showing QTC of 486. He was drinking somewhat heavily and sometimes potassium and magnesium levels are low with alcohol use. I will repeat blood workup on him. He should have EKGs done before any antibiotics are given to him. Specially with Z-Lamont/levofloxacin we have to be careful. Thank you for allowing me to participate in the care of your patient. Please feel free to contact me if you have any questions. Orders: Orders Magnesium Today R94.31 - Abnormal electrocardiogram [ECG] [EKG] CA echo transthoracic complete Today I34.0 - Nonrheumatic mitral (valve) insufficiency Basic Metabolic Panel Today R94.31 - Abnormal electrocardiogram [ECG] [EKG] Coding Level of Care Code Est Pt Level 4 (30806) Diagnoses Primary hypertension I10 Hypertension type: primary hypertension Mitral regurgitation I34.0 Prolonged QT interval R94.31 CPT Codes EKG - CPT: 98529-[id number], Complete ([id number])
== END 2023-04-30 14:26 | disposition home or self-care (01) ==
PROVIDERS: PCP Physician Assistant; Visit Provider Internal Medicine Cardiovascular Disease
DX: I10 Essential (primary) hypertension (principal); I34.0 Nonrheumatic mitral (valve) insufficiency; R94.31 Abnormal electrocardiogram [ECG] [EKG]
CPT/HCPCS: 93010; 99214

== ENCOUNTER → 2023-04-30 13:50 | Outpatient (BNVA) | payer OTHER, SELFPAY | PROVIDERS: PCP Physician Assistant; Visit Provider Internal Medicine Cardiovascular Disease | DX: I10 Essential (primary) hypertension (principal); I34.0 Nonrheumatic mitral (valve) insufficiency; R94.31 Abnormal electrocardiogram [ECG] [EKG] | CPT/HCPCS: 93005 ==

== ENCOUNTER 2024-02-17 14:26 | Outpatient (AMB) | payer OTHER, SELFPAY ==
--- NOTE | 2024-02-17 14:29 | A.OFFPC_ITS ---
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 Large Law Required: No Accompanied by: Self / Same As Patient Allergies No Known Allergies [No Known Allergies*] Allergy (Verified 02/17/24 14:37) Medication List - Last Reconciled 02/17/24 by Cholo Perry PA-C lisinopril-hydrochlorothiazide 20-12.5 mg 1 tab PO DAILY 90 days Tobacco use date assessed: 02/17/24 Dental Screening Dental Screen Date: 02/17/24 Did you have a dental visit in the last 12 months?: Yes Did you have a dental problem in the last 6 months where you did not have access to dental care?: No Was dental information given to patient?: Patient has dentist HPI Meds follow up HPI Details Patient is 58 y/o male patient with a past medical history significant for hypertension, primary osteoarthritis right knee, alcohol use disorder, chewing tobacco use, borderline high cholesterol. HTN:? Patient continues on lisinopril hydrochlorothiazide and blood pressure today in office acceptable..? Has followed up with Cardiology in has gotten echocardiogram showing qkqy-xt-zqdnzytb mitral regurgitation.? .. Tabacco dependency : Once he has been smoking cigars on a daily basis as of late. He vacation [place] was started to smoke cigars to keep the mosquitos away and now continues to smoke daily. He has used nicotine patches in the past to get him off of nicotine which has helped. .. Alcohol dependency: Thought does admit to drinking 2 nips and a few glasses of wine per day. He does understand he needs to cut down drinking. 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 Hyperlipidemia: Most recent fasting lipid panel showing total cholesterol to be elevated fmhx colon CA:? Has recently got his colonoscopy (2022) to did show polyp does hyperplastic though needs repeat in 5 years. PFSH Medical History Mitral regurgitation Osteoarthritis Elevated cholesterol HTN (hypertension) Transaminitis Alcohol use disorder, mild, abuse Surgical History Hx of colonoscopy Family History Brother Colon cancer Social History Housing: House Alcohol intake: former Year quit: 2022 Patient Tobacco Use Status: Former Tobacco user Tobacco use type: Smokeless Tobacco e-Cigarette/Vaping Use: Never Used Second Hand Smoke Exposure: No service: No Current occupational status: employed Current occupational exposures/hazards: No Cognitive needs: No Hearing needs: No Vision needs: No Questionnaire PHQ-9 Over the last 2 weeks, how often have you been bothered by any of the following problems? 1. Little interest or pleasure in doing things: not at all 2. Feeling down, depressed, or hopeless: not at all 3. Trouble falling or staying asleep, or sleeping too much: not at all 4. Feeling tired or having little energy: not at all 5. Poor appetite or overeating: not at all 6. Feeling bad about yourself - or that you are a failure or have let yourself or your family down: not at all 7. Trouble concentrating on things, such as reading the newspaper or watching television: not at all 8. Moving or speaking so slowly that other people could have noticed. Or the opposite - being so fidgety or restless that you have been moving around a lot more than usual: not at all 9. Thoughts that you would be better off or of hurting yourself in some w ay: not at all Total score: 0 Depression Screening Interpretation: Negative Depression Screening Done: Yes 52318 - PHQ-9 Billing: Yes Source: Developed by Drs. Víctor Handley, Aleena Loyd, Augustus Munguia and colleagues, with an educational clive from [employer]. Thrive Questionnaire Date Thrive assessed: 02/17/24 I am a: Patient What is your living situation today?: I have a steady place to live Within the past 12 months, did the food you bought not last and you didn't have the money to get more?: Never true Within the past 12 months, did you worry whether your food would run out before you got money to buy more?: Never true Do you have trouble paying for medicines?: No Do you have trouble getting transportation to medical appointments?: No Do you have trouble paying your heating and electricity bill?: No Do you have trouble taking care of your child, family member or friend?: No Do you have trouble with day-to-day activities such as bathing, preparing meals, shopping, managing finances, etc.?: No Are you currently unemployed and looking for a job?: No Are you interested in more education?: No Please select the resources that you would like help with: None Currently or been in a relationship where the following occur: No concerns reported THRIVE Score: 0 AUDIT C Alcohol Use Questionnaire (AUDIT-C) 1. How often do you have a drink containing alcohol?: 2-3 times a week 2. How many drinks containing alcohol do you have on a typical day when you are drinking?: 5 or 6 3. How often do you have six or more drinks on one occasion?: Less than monthly Total Score: 6 CAMRON-7 AMB Questionnaire CAMRON-7 Date CAMRON - 7 assessed: 02/17/24 Feeling nervous, anxious, or on edge: 0 = Not at all Not being able to stop or control worryin = Not at all Worrying too much about different things: 0 = Not at all Trouble relaxin = Not at all Being so restless that it is hard to sit still: 0 = Not at all Becoming easily annoyed or irritable: 0 = Not at all Feeling afraid as if something awful might happen: 0 = Not at all Total CAMRON-7 score (0-4 normal; 5-9 mild; 10-14 moderate; 15-21 severe): 0 Source: Developed by Drs. Víctor Handley, Aleena Loyd, Augustus Munguia and colleagues, with an educational clive from [employer]. CAMRON-7 Assessment Billing CAMRON-7 Assessment Tool: CAMRON-7 Assessment 76338 Review of Systems Const Denies headache(s) Eyes Denies loss of vision ENT Denies vertigo, Denies dizziness, Denies headache(s) and Denies sore throat Card Denies chest pain, Denies leg edema and Denies lightheadedness Resp Denies cough, Denies hemoptysis and Denies wheezing GI Denies abdominal pain, Denies melena, Denies constipation, Denies diarrhea and Denies vomiting Denies dysuria, Denies urinary frequency and Denies urinary urgency Musc Denies arthralgias, Denies joint swelling, Denies numbness and Denies tingling Neuro Denies Abnormal speech present, Denies behavioral changes, Denies vertigo, Denies dizziness, Denies headache(s), Denies loss of vision, Denies memory loss, Denies numbness and Denies tingling Psych Denies anxiety, Denies behavioral changes, Denies depression, Denies memory loss and Denies panic attacks Jung/Lymph Denies easy bleeding and Denies easy bruising Aller/Immun Denies wheezing Physical exam (Primary Care) Vital Signs: Last Vital Signs Pulse 68 02/17/24 14:30 BP 138/72 02/17/24 14:30 Pulse Ox 97 02/17/24 14:30 Oxygen Delivery Method Room Air 02/17/24 14:30 BMI result Body Mass Index 24.0 Tobacco/Smoking Status: Tobacco use Status Tobacco use date assessed 02/17/24 02/17/24 14:36 Patient Tobacco Use Status Former Tobacco user 02/17/24 14:34 Tobacco use type Smokeless Tobacco 02/17/24 14:34 e-Cigarette/Vaping Use Never Used 02/17/24 14:34 Are you ready to quit: Yes Tobacco cessation counseling provided: Yes Items discussed: Nicotine replacement Relapse Prevention: discussed the importance of a supportive environment, discussed negative mood or depression after quitting, weight gain after smoking is common and discussed dietary, exercise and/or lifestyle changes Number of minutes spent counselin CPT code: 85217 - 4-10 Minutes PHQ-9: PHQ-9 Score PHQ-9: Total score 0 02/17/24 14:36 Depression Screening Interpretation: Negative Thrive Assessment: Date of Thrive Assessment Date Thrive assessed 02/17/24 02/17/24 14:34 Currently or been in a relationship where the following occur: No concerns reported Const General: healthy appearing, no acute distress, alert and awake Nutritional Appearance: well nourished Orientation/consciousness: oriented to person, oriented to place and oriented to time HENMT Ears: TM's normal bilaterally General nose exam: Normal nasal mucous membranes and turbinates present Eyes Conjunctivae: conjunctivae normal Sclerae: sclerae normal Pupils: Equal, round and reactive pupils present Neck Neck: Yes no lymphadenopathy and Yes no JVD Thyroid: Thyroid normal Carotids: no bruits Resp Effort & Inspection: normal respiratory effort and not tachypneic Auscultation: no crackles, no rales, no rhonchi and no wheezes Cardio Rate: regular rate Rhythm: regular rhythm Heart sounds: no murmurs and normal S1 and S2 GI Palpation (GI): Soft to palpation, nontender, no hepatomegaly and no splenomegaly Auscultation: normal bowel sounds Skin General skin exam: no rashes or lesions noted and dry skin Neuro General: oriented to person, oriented to place and oriented to time Cranial nerves: Yes Equal, round and reactive pupils present Speech: No Abnormal speech present Gait exam (Neuro): Normal gait present Motor exam (neuro): no tremor noted Extrem Right upper extremity: full ROM Left upper extremity: full ROM Right lower extremity: full ROM; no edema Left lower extremity: full ROM; no edema Psych Mental Status: mental status grossly normal Speech and movement: Normal speech and movement present Affect: normal affect Attitude: cooperative Thought process: Normal thought process present Office Procedures Flu Questionnaire Does the patient have a severe egg allergy?: No Immunizations Fluarix Triv [id number] (PF) 45 mcg (15 mcg x 3)/0.5 mL IM syringe Performing Provider: Cholo Perry PA-C [facility] Documented (not given) by: SONYA Lizarraga on 02/17/24 14:35 Reason Not Given: Patient Refused Coding Level of Care Code Est Pt Level 4 (06157) Diagnoses Mixed hyperlipidemia E78.2 Hyperlipidemia type: mixed hyperlipidemia Primary hypertension I10 Hypertension type: primary hypertension Uncomplicated alcohol dependence F10.20 Substance use status: uncomplicated Tobacco dependence F17.200 Additional Codes CAMRON-7 Assessment Billing - CAMRON-7 Assessment Tool: CAMRON-7 Assessment 77852 ([id number]) PHQ-9 - 13059 - PHQ-9 Billing: Yes ([id number]) Vital Signs *Quality* - CPT code: 98608 - 4-10 Minutes ([id number]) Assessment & Plan Assessment & Plan (1) HLD (hyperlipidemia): Code(s): E78.5 - Hyperlipidemia, unspecified Category: Medical Qualifiers: Hyperlipidemia type: mixed hyperlipidemia Qualified Code(s): E78.2 - Mixed hyperlipidemia Plan: Patient's most recent lipid panel showing elevated total cholesterol and LDL. He does understand he has higher cardiovascular risk due to his smoking. He is not interested in starting any cholesterol medication at this time and will work on lifestyle and dietary modifications to reduce his cholesterol. (2) HTN (hypertension): Code(s): I10 - Essential (primary) hypertension Category: Medical Qualifiers: Hypertension type: primary hypertension Qualified Code(s): I10 - Essential (primary) hypertension Plan: Patient's blood pressure today in office acceptable. Will continue him on his current dose of antihypertensive medication with goal blood pressure to remain below 140/90 (3) Alcohol dependence: Code(s): F10.20 - Alcohol dependence, uncomplicated Category: Medical Qualifiers: Substance use status: uncomplicated Qualified Code(s): F10.20 - Alcohol dependence, uncomplicated Plan: As per HPI patient does admit to drinking a few glasses of wine and few nips per day. He does understand he needs to quit drinking. Does have history of alcohol hepatitis in the past. He does report having a few close friends which has caused him to be drinking a bit more. (4) Tobacco dependence: Code(s): F17.200 - Nicotine dependence, unspecified, uncomplicated Category: Medical Plan: Patient does admit to smoking cigars on a daily basis. He would like to try nicotine patches to help him quit tobacco. Orders: Orders Lipid Panel Today E78.2 - Mixed hyperlipidemia Microalbumin, Random (w Creat) Today I10 - Essential (primary) hypertension Influenza [id number] Immunization Today Z23 - Encounter for immunization Complete Blood Count no Diff Today E78.2 - Mixed hyperlipidemia Comprehensive Warner. Panel Fast Today I10 - Essential (primary) hypertension Prostate Specific Antigen Scr Today I10 - Essential (primary) hypertension, Z12.5 - Encounter for screening for malignant neoplasm of prostate Medications: New nicotine 1 patch transdermal DAILY 14 days 14 ea 0RF F17.200 - Nicotine dependence, unspecified, uncomplicated
[2024-02-17 14:30] VITALS: BP 138/72; PULSE 68; O2SAT 97; BMI 24.0
== END 2024-02-17 14:56 | disposition home or self-care (01) ==
LOC: HO.HMCH 14:26
PROVIDERS: PCP Physician Assistant; Visit Provider Physician Assistant
DX: E78.2 Mixed hyperlipidemia (principal); I10 Essential (primary) hypertension; F10.20 Alcohol dependence, uncomplicated; F17.200 Nicotine dependence, unspecified, uncomplicated; Z23 Encounter for immunization

== ENCOUNTER → 2024-02-17 14:26 | Outpatient (BNVA) | payer OTHER, SELFPAY | PROVIDERS: PCP Physician Assistant; Visit Provider Physician Assistant | DX: E78.2 Mixed hyperlipidemia (principal); I10 Essential (primary) hypertension; F10.20 Alcohol dependence, uncomplicated; F17.200 Nicotine dependence, unspecified, uncomplicated; Z28.21 Immunization not carried out because of patient refusal | CPT/HCPCS: 90471; 96127 ==

== ENCOUNTER 2024-05-03 14:57 | Outpatient (REF) | payer OTHER, SELFPAY ==
[2024-05-03 15:48] LABS: Hematocrit 43.8 % (42.0-52.0); Hemoglobin 15.1 g/dl (14.0-18.0); Mean Corpuscular HGB Conc 34.5 g/dl (31.0-36.0); Mean Corpuscular Volume 95.6 fL (80.0-98.0); Mean Platelet Volume 9.7 fL (9.4-12.4); Platelet Count 222 X10*3/uL (160-400); Red Blood Count 4.58 X10*6/uL (4.60-5.80); Red Cell Distribution Width 12.7 % (11.0-16.0); White Blood Count 6.6 X10*3/uL (4.8-10.8)
[2024-05-03 16:22] LABS: Creatinine Urine 13.78 mg/dL; Microalbumin Urine < 5.0 mg/L
[2024-05-03 17:21] LABS: Prostate Specific Antigen Scr 0.67 ng/mL (<0.05-4.0)
[2024-05-03 17:33] LABS: Alanine Aminotransferase 83 U/L (0-40); Albumin Level 4.6 g/dL (3.5-5.0); Anion Gap 14 (12-20); Aspartate Amino Transferase 62 U/L (5-37); Bilirubin Total 0.6 mg/dL (0.0-1.0); Blood Urea Nitrogen 9 mg/dL (9-16); Carbon Dioxide 25 mmol/L (22-29); Chloride 102 mmol/L (96-108); Cholesterol 220 mg/dL (<200); Estimated Glomerular Filt Rate > 60; Glucose Fasting 83 mg/dL (60-99); HDL Cholesterol 77 mg/dL (>40); LDL Cholesterol Calculated 128 mg/dL (<100); Potassium 3.9 mmol/L (3.3-5.1); Sodium 137 mmol/L (135-145); Total Protein 7.7 g/dL (6.5-8.0); Triglycerides 79 mg/dL (<150)
[2024-05-03 17:50] LABS: Alkaline Phosphatase 53 U/L (39-117)
== END 2024-05-03 14:58 | disposition home or self-care (01) ==
LOC: HO.HMGCLDS 14:57
PROVIDERS: PCP Physician Assistant; Visit Provider Physician Assistant
DX: I10 Essential (primary) hypertension (principal); E78.2 Mixed hyperlipidemia; Z12.5 Encounter for screening for malignant neoplasm of prostate
CPT/HCPCS: 36415; 80053; 80061; 82043; 82570; 84153; 85027; 93005

== ENCOUNTER 2024-05-03 15:31 | Outpatient (AMB) | payer OTHER, SELFPAY ==
[2024-05-03 15:41] VITALS: BP 140/92; PULSE 64; BMI 24.8
--- NOTE | 2024-05-03 15:41 | A.OFFVIS_ITS ---
Vital Signs 05/03/24 15:41 Height 5 ft 11 in Weight 177 lb 11.081 oz BMI 24.8 BP 140/92 H Blood Pressure Location Lt brachial Position Sitting Pulse 64 Pulse Source Monitor Intake Visit Reasons: 1 yr f/up Intake Note: 1 yr f/up Provider Enrollment Specialist Required: No Accompanied by: Self / Same As Patient Allergies No Known Allergies [No Known Allergies*] Allergy (Verified 02/17/24 14:37) Medication List - Last Reconciled 05/03/24 by Lino Escoto MD lisinopril-hydrochlorothiazide 20-12.5 mg 1 tab PO DAILY 90 days nicotine 1 patch transdermal DAILY 14 days HPI Comments Details: 58-year-old gentleman was referred to us from Gastroenterology for dyspnea on exertion and heart murmur. He has background history of hypertension and has been on lisinopril and hydrochlorothiazide. He is a former smoker and was chewing tobacco before but has quit tobacco use. He is saying he had a heart murmur for long time. He had echocardiography in October 2021 which showed myxomatous mitral valve with [id number] mitral valve regurgitation. He does not do significant physical work now. 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 Occasionally when he is going up hill he gets really winded and gets chest discomfort. Is saying he feels a pressure-like feeling in his chest. On plain surface he does not get significant symptoms. No other issues right now. His brother had colon cancer and he needs a screening colonoscopy. He underwent stress testing as below and did well. He did not develop any chest discomfort with exertion. He is here for follow-up. Overall doing well. He is asking whether he can proceed with colonoscopy. 04/30/23: He underwent stress testing and echocardiography. ECHO showed [id number] mitral valve regurgitation with myxomatous valve. Stress test was good. He underwent colonoscopy. He is now returning for follow-up. No new symptoms. His EKG showing slightly prolonged QT interval of 486. He said he was drinking somewhat heavily but has cut back significantly now. He has not had any recent blood workup. 05/03/2024: He is here for follow-up. He continues to drink alcohol. Blood pressure is mildly elevated. He is taking lisinopril hydrochlorothiazide combination. He has been smoking cigars. He does not get dyspnea while walking and going uphill but when he runs he gets out of breath easily. No chest discomfort. No syncope. [facility] Medical History Mitral regurgitation Osteoarthritis Elevated cholesterol HTN (hypertension) Transaminitis Alcohol use disorder, mild, abuse Surgical History Hx of colonoscopy Family History Brother Colon cancer Social History Housing: House Alcohol intake: former Year quit: 2022 Patient Tobacco Use Status: Former Tobacco user Tobacco use type: Smokeless Tobacco e-Cigarette/Vaping Use: Never Used Second Hand Smoke Exposure: No service: No Current occupational status: employed Current occupational exposures/hazards: No Cognitive needs: No Hearing needs: No Vision needs: No Review of Systems Const Denies chills, Denies fatigue, Denies fever(s), Denies frequent falls, Denies weakness, Denies weight gain and Denies weight loss ENT Denies dizziness Card Denies chest pain, Denies leg edema, Denies lightheadedness, Denies palpitations, Denies dyspnea and Denies dyspnea on exertion Resp Denies cough, Denies dyspnea and Denies dyspnea on exertion GI Denies hematochezia Musc Denies abnormal gait, Denies muscle weakness, Denies numbness, Denies radiating pain into limb and Denies tingling Neuro Denies abnormal gait, Denies dizziness, Denies frequent falls, Denies numbness, Denies tingling and Denies weakness Endo Denies fatigue and Denies palpitations Physical Exam Vital Signs: Last Vital Signs Pulse 64 05/03/24 15:41 BP 140/92 H 05/03/24 15:41 BMI result Body Mass Index 24.8 GENERAL APPEARANCE: in no acute distress, pleasant. NECK: no carotid bruit, no jugular venous distention. SKIN: no suspicious lesions, warm and dry. HEART: Holosystolic murmur at the apex, regular rate and rhythm. LUNGS: clear to auscultation bilaterally. ABDOMEN: soft, nontender. EXTREMITIES: no edema. PERIPHERAL PULSES: equal. NEUROLOGIC: No gross deficits, AAO X 3 Office Procedures EKG Details: Sinus rhythm 64 beats per minute, normal axis, inferior T-wave inversions- consider ischemia, QTC 458 milliseconds. 51231-Hthjivagbuftqaqvf, Complete Assessment & Plan Assessment & Plan (1) Mitral regurgitation: Code(s): I34.0 - Nonrheumatic mitral (valve) insufficiency Category: Medical (2) HTN (hypertension): Code(s): I10 - Essential (primary) hypertension Category: Medical Qualifiers: Hypertension type: primary hypertension Qualified Code(s): I10 - Essential (primary) hypertension (3) LUNDBERG (dyspnea on exertion): Code(s): R06.09 - Other forms of dyspnea Category: Medical Plan Pleasant 58 year gentleman who is here for follow-up. He has background history of hypertension and mitral valve prolapse with [id number] mitral valve regurgitation. He has dyspnea on exertion especially when he is running. Going uphill and walking otherwise does not bother him. No chest discomfort. EKGs are normal with inferior T-wave inversions. We discussed about repeating echocardiography has its has been 3 years since we assessed the mitral valve. We will arrange transthoracic echo for him. Given dyspnea with activity and inferior T-wave changes-I am arranging an exercise stress test for him. He will see us back in few months after doing the testing. Blood pressure is elevated and I have explained to him that this is linked with his alcohol intake. He has to cut back to improve the blood pressure. Alternat ively can increase the medications to but I would rather have him decrease his alcohol intake. Thank you for allowing me to participate in the care of your patient. Please feel free to contact me if you have any questions. Orders: Orders CA echo transthorac w con Today I34.0 - Nonrheumatic mitral (valve) insufficiency CA echo stress exercise Today R06.09 - Other forms of dyspnea Coding Level of Care Code Est Pt Level 4 (95746) Diagnoses Mitral regurgitation I34.0 Primary hypertension I10 Hypertension type: primary hypertension LUNDBERG (dyspnea on exertion) R06.09 CPT Codes EKG - CPT: 77277-Swarnyxtedexwrite, Complete ([id number])
== END 2024-05-03 16:04 | disposition home or self-care (01) ==
PROVIDERS: PCP Physician Assistant; Visit Provider Internal Medicine Cardiovascular Disease
DX: I34.0 Nonrheumatic mitral (valve) insufficiency (principal); I10 Essential (primary) hypertension; R06.09 Other forms of dyspnea
CPT/HCPCS: 93010; 99214

== ENCOUNTER 2024-05-04 14:36 | Outpatient (AMB) | payer OTHER, SELFPAY ==
--- NOTE | 2024-05-04 14:38 | MHC.PC.OV ---
Vital Signs 05/04/24 14:39 Height 5 ft 11 in Weight 175 lb BMI 24.4 BP 150/92 H Blood Pressure Location Lt brachial Position Sitting Pulse 59 Pulse Source Pulse Oximeter Temp 97.5 F Temp Source Temporal Artery Scan Pulse Oximetry (%) 98 Oxygen Delivery Method Room Air Intake Visit Reasons: pe Intake Note: Patient here for a physical exam Parent Aide Required: No Accompanied by: Self / Same As Patient Allergies No Known Allergies [No Known Allergies*] Allergy (Verified 05/04/24 15:05) Medication List - Last Reconciled 05/04/24 by Cholo Perry PA-C lisinopril-hydrochlorothiazide 20-12.5 mg 1 tab PO DAILY 90 days nicotine 1 patch transdermal DAILY 14 days Tobacco use date assessed: 05/04/24 Dental Screening Dental Screen Date: 05/04/24 Did you have a dental visit in the last 12 months?: Yes Did you have a dental problem in the last 6 months where you did not have access to dental care?: No Was dental information given to patient?: Patient has dentist HPI pe HPI Details Patient is 58 y/o male patient with a past medical history significant for hypertension, primary osteoarthritis right knee, alcohol use disorder, chewing tobacco use, borderline high cholesterol. HTN:? Patient continues on lisinopril hydrochlorothiazide and blood pressure today in office acceptable..? He does have moderate mitral valve regurgitation. Most recent EKG showing T-wave abnormalities. He is due for repeat echocardiogram. Otherwise denies any lower extremity edema. Does have some shortness of breath on physical activity. ? .. Tabacco dependency : Once he has been smoking 3-4 cigars on a daily basis as of late. He has nicotine patches available to him .. Alcohol dependency: Most recent liver enzymes elevated, Thought does admit to drinking 1 nips and a few glasses of wine per day. He does understand he needs to cut down drinking. 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 Hyperlipidemia: Most recent fasting lipid panel showing total cholesterol has improved from previous. fmhx colon CA:? Has recently got his colonoscopy (2022) to did show polyp does hyperplastic though needs repeat in 5 years. VAccine: Declines FLu, UTD with COVID , considering tetanus vaccine Laboratory Tests 08/04/22 09/06/22 05/03/24 17:21 06:49 15:00 RBC 4.58 L Hgb 15.1 AST 192 H 24 62 H ALT 122 H 33 83 H Cholesterol 242 220 H LDL Cholesterol, C alc 176 128 H PSA Screen 0.67 PFSH Medical History (Updated 05/04/24 @ 15:14 by Cholo Perry PA-C) Chewing tobacco nicotine dependence Mitral regurgitation Osteoarthritis Elevated cholesterol HTN (hypertension) Transaminitis Alcohol use disorder, mild, abuse Surgical History Hx of colonoscopy Family History Brother Colon cancer Social History (Updated 05/04/24 @ 15:09 by Cholo Perry PA-C) Housing: House Alcohol intake: current Alcohol intake frequency: 3 or more drinks per day Alcohol type: wine and hard liquor Patient Tobacco Use Status: Former Tobacco user Tobacco use type: Cigar and Smokeless Tobacco e-Cigarette/Vaping Use: Never Used Second Hand Smoke Exposure: No service: No Current occupational status: employed Current occupational exposures/hazards: No Cognitive needs: No Hearing needs: No Vision needs: No Questionnaire PHQ-9 Over the last 2 weeks, how often have you been bothered by any of the following problems? 1. Little interest or pleasure in doing things: not at all 2. Feeling down, depressed, or hopeless: not at all 3. Trouble falling or staying asleep, or sleeping too much: not at all 4. Feeling tired or having little energy: not at all 5. Poor appetite or overeating: not at all 6. Feeling bad about yourself - or that you are a failure or have let yourself or your family down: not at all 7. Trouble concentrating on things, such as reading the newspaper or watching television: not at all 8. Moving or speaking so slowly that other people could have noticed. Or the opposite - being so fidgety or restless that you have been moving around a lot more than usual: not at all 9. Thoughts that you would be better off or of hurting yourself in some way: not at all Total score: 0 Depression Screening Interpretation: Negative Depression Screening Done: Yes 76035 - PHQ-9 Billing: Yes Source: Developed by Drs. Víctor Handley, Augustus Zamudio and colleagues, with an educational clive from [employer] Thrive Questionnaire Date Thrive assessed: 05/04/24 I am a: Patient What is your living situation today?: I have a steady place to live Within the past 12 months, did the food you bought not last and you didn't have the money to get more?: Never true Within the past 12 months, did you worry whether your food would run out before you got money to buy more?: Never true Do you have trouble paying for medicines?: No Do you have trouble getting transportation to medical appointments?: No Do you have trouble paying your heating and electricity bill?: No Do you have trouble taking care of your child, family member or friend?: No Do you have trouble with day-to-day activities such as bathing, preparing meals, shopping, managing finances, etc.?: No Are you currently unemployed and looking for a job?: No Are you interested in more education?: No Please select the resources that you would like help with: None Currently or been in a relationship where the following occur: No concerns reported THRIVE Score: 0 AUDIT C Alcohol Use Questionnaire (AUDIT-C) 1. How often do you have a drink containing alcohol?: 4 or more times a week 2. How many drinks containing alcohol do you have on a typical day when you are drinking?: 3 or 4 3. How often do you have six or more drinks on one occasion?: Weekly Total Score: 8 CAMRON-7 AMB Questionnaire CAMRON-7 Date CAMRON - 7 assessed: 05/04/24 Feeling nervous, anxious, or on edge: 0 = Not at all Not being able to stop or control worryin = Not at all Worrying too much about different things: 0 = Not at all Trouble relaxin = Not at all Being so restless that it is hard to sit still: 0 = Not at all Becoming easily annoyed or irritable: 0 = Not at all Feeling afraid as if something awful might happen: 0 = Not at all Total CAMRON-7 score (0-4 normal; 5-9 mild; 10-14 moderate; 15-21 severe): 0 Source: Developed by Aleena Doran Kurt Kroenke and colleagues, with an educational clive from [employer] CAMRON-7 Assessment Billing CAMRON-7 Assessment Tool: CAMRON-7 Assessment 18708 Review of Systems Const Denies body aches, Denies chills, Denies excessive sweating, Denies fatigue, Denies fever(s) and Denies headache(s) Eyes Denies blurry vision ENT Denies dysphagia, Denies vertigo, Denies dizziness, Denies headache(s), Denies hearing loss and Denies tinnitus Card Denies chest pain, Denies chest pain with activity, Denies syncope, Denies irregular heart rhythm and Denies dyspnea Resp Denies chest congestion, Denies cough, Denies hemoptysis, Denies dyspnea and Denies wheezing GI Denies abdominal pain, Denies melena, Denies hematochezia, Denies coffee ground emesis, Denies dysphagia, Denies diarrhea, Denies nausea and Denies vomiting Denies difficulty urinating, Denies dysuria, Denies urinary frequency, Denies urinary hesitancy and Denies urinary urgency Musc Denies arthralgias, Denies limited range of motion, Denies muscle cramps and Denies muscle weakness Skin/Breast Denies rash and Denies skin ulcer Neuro Denies Abnormal speech present, Denies confusion, Denies vertigo, Denies dizziness, Denies syncope, Denies headache(s), Denies memory loss and Denies seizure-like activity Psych Denies anxiety, Denies confusion, Denies depression, Denies memory loss, Denies panic attacks and Denies paranoia Endo Denies excessive sweating, Denies fatigue, Denies flushing, Denies polydipsia and Denies polyuria Aller/Immun Denies wheezing Physical exam (Primary Care) Vital Signs: Last Vital Signs Temp 97.5 F 05/04/24 14:39 Pulse 59 05/04/24 14:39 BP 150/92 H 05/04/24 14:39 Pulse Ox 98 05/04/24 14:39 Oxygen Delivery Method Room Air 05/04/24 14:39 BMI result Body Mass Index 24.4 Tobacco/Smoking Status: Tobacco use Status Tobacco use date assessed 05/04/24 05/04/24 14:43 Patient Tobacco Use Status Former Tobacco user 05/04/24 14:43 Tobacco use type Cigar,Smokeless Tobacco 05/04/24 14:43 e-Cigarette/Vaping Use Never Used 05/04/24 14:43 Are you ready to quit: No Tobacco cessation counseling provided: Yes Items discussed: Nicotine replacement and QuitWorks Relapse Prevention: discussed the importance of a supportive environment, discussed negative mood or depression after quitting, weight gain after smoking is common and discussed dietary, exercise and/or lifestyle changes Number of minutes spent counselin CPT code: 96435 - 4-10 Minutes PHQ-9: PHQ-9 Score PHQ-9: Total score 0 05/04/24 14:43 Depression Screening Interpretation: Negative Thrive Assessment: Date of Thrive Assessment Date Thrive assessed 05/04/24 05/04/24 14:43 Currently or been in a relationship where the following occur: No concerns reported Const General: cooperative, comfortable, no acute distress, alert and awake; No confusion Orientation/consciousness: oriented to person, oriented to place, patient oriented x3 and No confusion HENMT Head: Yes normocephalic Ears: external ears normal and TM's normal bilaterally Face and sinus: No sinus tenderness Mouth: Normal oral and palatal mucosa present and tongue normal Teeth and gingiva: dentition normal and gingiva normal Throat: Yes posterior oropharynx normal, Yes tonsils normal and Yes uvula midline Eyes Conjunctivae: conjunctivae normal Sclerae: sclerae normal Pupils: Equal, round and reactive pupils present EOM: EOMs intact bilaterally Direct Ophthalmoscopy: No no photophobia Neck Neck: Yes no lymphadenopathy, No tender and Yes no JVD Thyroid: Thyroid normal Carotids: no bruits Chest Chest palpation & inspection: no tenderness Resp Effort & Inspection: normal respiratory effort, no audible wheezes, not labored and no stridor Auscultation: no crackles, no rales, no rhonchi and no wheezes Cardio Jugular venous distension: no JVD Rate: regular rate, not bradycardic and not tachycardic Rhythm: regular rhythm Bruits: no carotid bruits Peripheral pulses: Peripheral pulses 2+ throughout GI Inspection: Yes normal to inspection, No abdominal wall ecchymosis and No visible herniation Palpation (GI): Soft to palpation, nontender, no guarding, not rigid and No hepatosplenomegaly present Auscultation: normoactive bowel sounds General: Yes no CVA tenderness Back/Spine/Pelvis Back: no CVA tenderness and No back tenderness Cervical Spine: cervical ROM normal Thoracic/Lumbar Spine: thoracic and lumbar spine normal to inspection, straight leg raise negative bilaterally, No thoraco-lumbar ROM limited and No lumbar spinal tenderness Skin Lesions: no lesions Rashes: no rashes Wounds: no wounds Neuro General: oriented to person, oriented to place, patient oriented x3, CN's II-XI intact bilaterally and No confusion Cranial nerves: Yes Equal, round and reactive pupils present and Yes Normal accommodation reflex present Cognition (Neuro): normal cognition Speech: No Abnormal speech present Gait exam (Neuro): Normal gait present Motor exam (neuro): 5/5 motor strength present throughout Extrem Right upper extremity: full ROM; no cyanosis Left upper extremity: full ROM; no cyanosis Right lower extremity: no edema Left lower extremity: no edema Psych Appearance: grossly normal Mental Status: mental status grossly normal Affect: normal affect Attitude: cooperative Thought process: Normal thought process present Coding Level of Care Code Est Pt Prev Care 40-64y(06821) Diagnoses Annual physical exam Z00.00 Uncomplicated alcohol dependence F10.20 Substance use status: uncomplicated Tobacco dependence F17.200 Transaminitis R74.01 Mixed hyperlipidemia E78.2 Hyperlipidemia type: mixed hyperlipidemia Primary hypertension I10 Hypertension type: primary hypertension Gastroesophageal reflux disease without esophagitis K21.9 Esophagitis presence: without esophagitis Additional Codes PHQ-9 - 97500 - PHQ-9 Billing: Yes ([id number]) CAMRON-7 Assessment Billing - CAMRON-7 Assessment Tool: CAMRON-7 Assessment 44968 ([id number]) Vital Signs *Quality* - CPT code: 51250 - 4-10 Minutes ([id number]) Assessment & Plan Assessment & Plan (1) Annual physical exam: Code(s): Z00.00 - Encounter for general adult medical examination without abnormal findings Category: Medical Plan: As per HPI (2) Alcohol dependence: Code(s): F10.20 - Alcohol dependence, uncomplicated Category: Medical Qualifiers: Substance use status: uncomplicated Qualified Code(s): F10.20 - Alcohol dependence, uncomplicated Plan: Patient does admit to having inhibit day in 2-3 glasses of wine. Most recent liver enzymes elevated and he does understand this is likely due to his alcohol intake. He will try to cut down over the next 6 months and will recheck his labs. (3) Tobacco dependence: Code(s): F17.200 - Nicotine dependence, unspecified, uncomplicated Category: Medical Plan: He does report smoking 4-5 small cigars per day. He does understand this is detrimental to his cardiovascular health. Have nicotine patches available to him though did not feel there effective. Did offer mother nicotine replacement though declines at this time (4) Transaminitis: Code(s): R74.01 - Elevation of levels of liver transaminase levels Category: Medical Plan: Noted elevations in his liver enzyme. He has been drinking again (5) HLD (hyperlipidemia): Code(s): E78.5 - Hyperlipidemia, unspecified Category: Medical Qualifiers: Hyperlipidemia type: mixed hyperlipidemia Qualified Code(s): E78.2 - Mixed hyperlipidemia Plan: Most recent lipid panel showing improved total cholesterol and LDL. He has been working on better eating habits. Goal LDL to be below 130 (6) HTN (hypertension): Code(s): I10 - Essential (primary) hypertension Category: Medical Qualifiers: Hypertension type: primary hypertension Qualified Code(s): I10 - Essential (primary) hypertension Plan: Patient's blood pressure elevated today in office. He continues with lisinopril hydrochlorothiazide. He does not monitor his blood pressure at home. Of note had abnormal EKG with T-wave abnormalities. He is seeing cardiology will be due for echocardiogram and stress test. Goal blood pressures to be below 140/90 (7) GERD (gastroesophageal reflux disease): Code(s): K21.9 - Gastro-esophageal reflux disease without esophagitis Category: Medical Qualifiers: Esophagitis presence: without esophagitis Qualified Code(s): K21.9 - Gastro-esophageal reflux disease without esophagitis Plan: Has been having GERD symptoms recently due to poor eating habits. Will supply patient with omeprazole to use on an as needed basis. Orders: Orders Comprehensive [facility]. Panel Fast Today I10 - Essential (primary) hypertension Complete Blood Count no Diff 6 Months F10.10 - Alcohol abuse, uncomplicated Lipid Panel 6 Months E78.9 - Disorder of lipoprotein metabolism, unspecified Medications: New omeprazole 20 mg PO DAILY 30 days 30 caps 1RF K21.9 - Gastro-esophageal reflux disease without esophagitis
[2024-05-04 14:39] VITALS: BP 150/92; PULSE 59; TEMP 36.4; O2SAT 98; BMI 24.4
== END 2024-05-04 15:23 | disposition home or self-care (01) ==
PROVIDERS: PCP Physician Assistant; Visit Provider Physician Assistant
DX: Z00.00 Encounter for general adult medical examination without abnormal findings (principal); F10.20 Alcohol dependence, uncomplicated; F17.200 Nicotine dependence, unspecified, uncomplicated; R74.01 Elevation of levels of liver transaminase levels; E78.2 Mixed hyperlipidemia; I10 Essential (primary) hypertension; K21.9 Gastro-esophageal reflux disease without esophagitis

== ENCOUNTER → 2024-05-04 14:36 | Outpatient (BNVA) | payer OTHER, SELFPAY | PROVIDERS: PCP Physician Assistant; Visit Provider Physician Assistant | DX: Z00.00 Encounter for general adult medical examination without abnormal findings (principal); R74.01 Elevation of levels of liver transaminase levels; E78.2 Mixed hyperlipidemia; I10 Essential (primary) hypertension; K21.9 Gastro-esophageal reflux disease without esophagitis; F10.20 Alcohol dependence, uncomplicated; F17.200 Nicotine dependence, unspecified, uncomplicated; Z79.899 Other long term (current) drug therapy | CPT/HCPCS: 96127 ==

== ENCOUNTER → 2024-06-18 07:46 | Outpatient (REF) | payer OTHER, SELFPAY ==
--- NOTE | 2024-06-18 07:51 | CA_ITS ---
Transthoracic Echocardiogram Patient (Last, First, Middle): James Way M Gender: Male Date of : 1965 Age: 58 Procedure Date: 06/18/2024 Procedure Type: Transthoracic Echocardiogram Location: OP Height: 180. cm Weight: 79.38 kg BSA: 1.99 m2 Heart Rate: 60 bpm BP: 135 / 75 mmHg Shake Feeder: SCARLETT Referring MD: Lino Escoto MD Symptoms: I34.0 - Nonrheumatic mitral (valve) insufficiency Study Quality: Adequate ECG Rhythm: Sinus Conclusions: - Normal left ventricular size, thickness, systolic function, and wall motion. The visually estimated ejection fraction is between 55-60%. Diastolic function is normal for age. - Normal right ventricular cavity size and systolic function. - The mitral valve appears myxomatous. There is moderate posterior mitral leaflet thickening. There is mild to moderate mitral valve regurgitation. - There is no evidence of pericardial effusion. Findings Left Ventricle Normal left ventricular size, thickness, systolic function, and wall motion. The visually estimated ejection fraction is between 55-60%. Diastolic function is normal for age. Right Ventricle Normal right ventricular cavity size and systolic function. Atria The left atrium is mildly dilated. The right atrium is normal in size. Aortic Valve There is a normal trileaflet aortic valve. There is no aortic valve stenosis. There is no aortic valve regurgitation. Mitral Valve The mitral valve appears myxomatous. There is moderate posterior mitral leaflet thickening. There is mild to moderate mitral valve regurgitation. The mitral regurgitation jet is directed anteriorly. There is no mitral valve stenosis. Pulmonic Valve The pulmonic valve is likely normal. Tricuspid Valve Normal tricuspid valve structure. There is trace tricuspid valve regurgitation. Tricuspid regurgitation envelope is inadequate for calculation of right ventricular systolic pressure. Normal right atrial pressure. Great Vessels All visible segments of the aorta are normal in size. Venous The inferior vena cava is normal in size and collapses greater than 50% with inspiration. Pericardium/Pleural There is no evidence of pericardial effusion. Prior Study Comparison No significant change compared to prior study dated: 11/07/2021. Measurements 2D Linear Measurements IVSd: 0.74 0.6-0.9/0.6-1.0 cm LVIDd: 5.45 3.9-5.3/4.2-5.9 cm LVIDd Index: 2.74 2.4-3.2/2.2-3.1 cm/m2 LVIDs: 3.63 2.0-3.6 cm LVPWd: 0.83 0.7-1.1 cm LA Diam: 4.00 2.7-3.8/3.0-4.0 cm LAIDs Index: 2.01 1.5-2.3 cm/m2 LV Mass: 191.43 67-162/88-224 g LV Mass Index: 96.20 43-95/49-115 g/m2 LVOT Diam: 2.30 3.0+(-)1.3 cm 2D Systolic Function EF 4C: 55.20 >55% EF 2C: 58.90 >55% EF BiP: 58.20 >55% Mitral Valve MV Pk E: 0.63 MV PK A: 0.56 MV Decel Time: 310.00 E/A: 1.10 E'Lateral: 8.27 E'Medial: 7.51 E/E' Med: 8.30 E/E' Lat: 7.60 PHT: 91.00 MVA PHT: 2.42 Decel Dolores: 2.02 Aortic Valve AoV Pk Elmer: 1.28 AoV Mn Elmer: 0.85 AoV VTI: 0.27 AoV Pk Grad: 7.00 Aov Mn Grad: 3.00 ALESSANDRA Cont.VTI: 2.89 LVOT LVOT Pk Elmer: 0.92 LVOT Mn Elmer: 0.59 LVOT VTI: 0.19 LVOT Pk Grad: 3.00 LVOT Mn Grad: 2.00 LVOT Diam: 2.30 LVOT Area: 4.15 Diastolic Function MV Pk E: 0.63 MV Pk A: 0.56 E/A: 1.10 E'Medial: 7.51 E/E' Med: 8.30 E' Laterial: 8.27 E/E' Lat: 7.60 Right Ventricle TAPSE (mm): 22.70 TVS' Elmer: 13.50 Tricuspid Valve RA Press: 3.00 Great Vessels Aorta Sinus of Valsalva: 3.60 2.0-3.5 cm Ao Asc: 3.70 2.1-3.4 cm Ao Arch: 2.90 Pulmonary Valve PV Pk Elmer: 0.84 Peak PV Grad: 3.00 Updated in Other Vendor System with Status of Final Lino Escoto MD electronically signed on 06/18/2024 4:22:58 PM with status of Final
== END ==
LOC: HO.CARD 07:46
PROVIDERS: PCP Physician Assistant; Visit Provider Internal Medicine Cardiovascular Disease
DX: I34.0 Nonrheumatic mitral (valve) insufficiency (principal)
CPT/HCPCS: 93306

== ENCOUNTER → 2024-06-18 07:51 | Outpatient (BNV) | payer OTHER, SELFPAY | PROVIDERS: PCP Physician Assistant; Visit Provider Internal Medicine Cardiovascular Disease | DX: I34.0 Nonrheumatic mitral (valve) insufficiency (principal) | CPT/HCPCS: 93306 ==

== ENCOUNTER → 2024-07-12 10:39 | Outpatient (REF) | payer OTHER, SELFPAY ==
--- NOTE | 2024-07-12 10:41 | CA_ITS ---
Acquisition Time: 2024-07-12 11:12:40 Total Exercise Time: 00:08:45 Test Indications: CP SOB Medications: LISINOPRIL/HCTZ Protocol: RODRIGO Max HR: 153 BPM 93% of Pred: 163 BPM Max BP: 174/80 mmHG Max Work Load: 10.1 METS Exercise stress test with exercise 8 mins 45 secs of Rodrigo Protocol, achieving 93% MPHR, with severe SOB, no chest pain, with isolated PACs and PVCs, with normotensive response to exercise. Without EKG changes meeting criteria for ischemia. In recovery, breathing returned to baseline. Echo images obtained by tech at rest and post peak exercise. Definity contrast utilized. Test reviewed with Dr. Carmichael. Referred By: Lino Escoto Electronically Signed By: Sukumar Gordon
== END ==
LOC: HO.CARD 10:39
PROVIDERS: PCP Physician Assistant; Visit Provider Internal Medicine Cardiovascular Disease
DX: R06.09 Other forms of dyspnea (principal)
CPT/HCPCS: 93350; Q9957

== ENCOUNTER → 2024-07-12 10:41 | Outpatient (BNV) | payer OTHER, SELFPAY | PROVIDERS: PCP Physician Assistant | DX: I34.0 Nonrheumatic mitral (valve) insufficiency (principal); R94.31 Abnormal electrocardiogram [ECG] [EKG]; R06.02 Shortness of breath; I49.1 Atrial premature depolarization; I49.3 Ventricular premature depolarization | CPT/HCPCS: 93016; 93018; 93350; 93352 ==

== ENCOUNTER 2024-07-20 08:11 | Outpatient (AMB) | payer OTHER, SELFPAY ==
[2024-07-20 08:24] VITALS: BP 138/72; PULSE 67; BMI 24.3
--- NOTE | 2024-07-20 08:24 | MHC.OFFVIS ---
Vital Signs 07/20/24 08:24 Height 5 ft 11 in Weight 174 lb 9.698 oz BMI 24.3 BP 138/72 Blood Pressure Location Lt brachial Position Sitting Pulse 67 Pulse Source Pulse Oximeter Intake Visit Reasons: f/up-sooner per km/stress test Video And Sound Recorder Required: No Allergies No Known Allergies [No Known Allergies*] Allergy (Verified 07/20/24 08:26) Medication List - Last Reconciled 07/20/24 by Jen Reveles, COLOR GRINDER-C lisinopril-hydrochlorothiazide 20-12.5 mg 1 tab PO DAILY 90 days nicotine 1 patch transdermal DAILY 14 days HPI HPI f/up-sooner per km/stress test: Details: James is a 58-year-old male with past medical history of hypertension, hyperlipidemia, smoking, mitral regurgitation who is being evaluated for shortness of breath with exertion. He recently had an echocardiogram and stress echocardiogram and now presents for follow-up. Today he reports that his breathing is comfortable with his normal day-to-day activities. He does not typically over exert himself. 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 He denies chest discomfort at rest or with activity. No PND, orthopnea or edema. No heart palpitations, lightheadedness, presyncope, syncope. He feels he has good activity tolerance. He has been smoking small cigars for about 1 year and believes that contributes to his shortness of breath symptom. He continues to drink alcohol routinely. Compliant with medications. [facility] Medical History Chewing tobacco nicotine dependence Mitral regurgitation Osteoarthritis Elevated cholesterol HTN (hypertension) Transaminitis Alcohol use disorder, mild, abuse Surgical History Hx of colonoscopy Family History Brother Colon cancer Social History Housing: House Alcohol intake: current Alcohol intake frequency: 3 or more drinks per day Alcohol type: wine and hard liquor Patient Tobacco Use Status: Former Tobacco user Tobacco use type: Cigar and Smokeless Tobacco e-Cigarette/Vaping Use: Never Used Second Hand Smoke Exposure: No service: No Current occupational status: employed Current occupational exposures/hazards: No Cognitive needs: No Hearing needs: No Vision needs: No Review of Systems Const All systems reviewed & are unremarkable except as noted in HPI and below ENT Denies dizziness Card Denies chest pain, Denies chest pain at rest, Denies chest pain with activity, Denies rapid heart rate, Denies pedal edema, Denies edema, Denies leg edema, Denies lightheadedness, Denies palpitations, Denies dyspnea, Reports dyspnea on exertion and Denies orthopnea Resp Denies cough, Denies dyspnea and Reports dyspnea on exertion GI Denies hematochezia and Denies change in stool character Musc Denies abnormal gait, Denies limited range of motion, Denies muscle cramps, Denies muscle weakness, Denies numbness, Denies radiating pain into limb, Denies stiffness and Denies tingling Neuro Denies abnormal gait, Denies dizziness, Denies numbness and Denies tingling Endo Denies palpitations Physical Exam Vital Signs: Last Vital Signs Pulse 67 07/20/24 08:24 BP 138/72 07/20/24 08:24 BMI result Body Mass Index 24.3 Const General: cooperative, healthy appearing, comfortable and no acute distress Orientation/consciousness: patient oriented x3 Neck Neck: Yes normal visual inspection Resp Effort & Inspection: normal respiratory effort Auscultation: clear to auscultation bilaterally, no crackles, no rales, no rhonchi and no wheezes Cardio Rate: regular rate Rhythm: regular rhythm Heart sounds: S1 normal heart sound present, S2 normal heart sound present, Murmur heart sound present (Apical, systolic murmur) and no rubs Skin General skin exam: no rashes or lesions noted Neuro General: patient oriented x3 Extrem General: Yes normal to inspection and No no pedal edema Psych Appearance: grossly normal Mental Status: mental status grossly normal Speech and movement: Normal speech and movement present Assessment & Plan Assessment & Plan (1) LUNDBERG (dyspnea on exertion): Code(s): R06.09 - Other forms of dyspnea Category: Medical Plan: Cardiac evaluation for shortness of breath with exertional activities and heart murmur on examination. EKG done 05/03/2024 shows sinus rhythm with T-wave abnormality inferior leads, rate 64. Echocardiogram done 06/18/2024 shows EF 55-60%, mitral valve myxomatous, with mild to moderate MR, and no significant change from 11/07/2021. Stress echocardiogram done 07/12/2024 showed exercise 8 minutes 45 seconds with severe shortness of breath, no EKG changes and no echo evidence of exercise induced ischemia, moderate MR. Test results reviewed with him in detail. His shortness of breath could still be related to CAD or possibly his mitral valve. Recommend right and left heart catheterization for further evaluation. I spent time reviewing the procedure with him and he declines at this time.-he reports being fearful of procedures and dislikes needles. Also suggested possibility of transesophageal echocardiogram which he also declines. He wants to think about this and possibly set procedures up at a later date. Instructed to notify this office if he has increasing shortness of breath or new chest discomfort. Emergency care if ever needed. Cardiology follow-up 4 months, sooner if needed. (2) Mitral regurgitation: Code(s): I34.0 - Nonrheumatic mitral (valve) insufficiency Category: Medical Plan: [id number] mitral regurgitation. (3) HTN (hypertension): Code(s): I10 - Essential (primary) hypertension Category: Medical Qualifiers: Hypertension type: primary hypertension Qualified Code(s): I10 - Essential (primary) hypertension Plan: Blood pressure goal less than 130/80. Near goal today. No med changes made. (4) Tobacco dependence: Code(s): F17.200 - Nicotine dependence, unspecified, uncomplicated Category: Medical Plan: Smoking small cigars for the last year. This may be contributing to his shortness of breath with exertion. Instructed on smoking cessation. Plan Time spent on chart review, documentation, interview and assessment Coding Level of Care Code Est Pt Level 4 (89108) Complex EM visit Add On G2211 Diagnoses LUNDBERG (dyspnea on exertion) R06.09 Mitral regurgitation I34.0 Primary hypertension I10 Hypertension type: primary hypertension Tobacco dependence F17.200 Time Spent (min) 32
== END 2024-07-20 08:54 | disposition home or self-care (01) ==
LOC: HO.HCS 08:11
PROVIDERS: PCP Physician Assistant; Visit Provider Nurse Practitioner Family
DX: R06.09 Other forms of dyspnea (principal); I34.0 Nonrheumatic mitral (valve) insufficiency; I10 Essential (primary) hypertension; F17.200 Nicotine dependence, unspecified, uncomplicated
CPT/HCPCS: 99214

== ENCOUNTER → 2024-07-20 08:11 | Outpatient (BNVA) | payer OTHER, SELFPAY | PROVIDERS: PCP Physician Assistant; Visit Provider Nurse Practitioner Family ==

== ENCOUNTER 2025-01-26 09:51 | Outpatient (AMB) | payer OTHER, SELFPAY ==
[2025-01-26 10:00] VITALS: BP 140/90; PULSE 83; TEMP 36.3; O2SAT 97; BMI 23.5
--- NOTE | 2025-01-26 10:00 | A.OFFPC_ITS ---
Vital Signs 01/26/25 10:00 Height 5 ft 11 in Weight 168 lb 8 oz BMI 23.5 BP 140/90 H Blood Pressure Location Lt brachial Position Sitting Pulse 83 Pulse Source Pulse Oximeter Temp 97.3 F Temp Source Temporal Artery Scan Pulse Oximetry (%) 97 Oxygen Delivery Method Room Air Intake Visit Reasons: F/u HTN/ ETOH Allergies No Known Allergies (No Known Allergies*) Allergy (Verified 01/26/25 10:05) Medication List - Last Reconciled 01/26/25 by Cholo Perry PA-C lisinopril-hydrochlorothiazide 20-12.5 mg 1 tab PO DAILY 90 days Tobacco use date assessed: 01/26/25 Dental Screening Dental Screen Date: 01/26/25 Did you have a dental visit in the last 12 months?: Yes Did you have a dental problem in the last 6 months where you did not have access to dental care?: No Was dental information given to patient?: Patient has dentist HPI F/u HTN/ ETOH HPI Details Patient is 59 y/o male patient with a past medical history significant for hypertension, primary osteoarthritis right knee, alcohol use disorder, chewing tobacco use, borderline high cholesterol. HTN:? Patient continues on lisinopril hydrochlorothiazide and blood pressure today in office acceptable..? He does have moderate mitral valve regurgitation. Most recent EKG showing T-wave abnormalities. He is due for repeat echocardiogram. Otherwise denies any lower extremity edema. Does have some shortness of breath on physical activity. ? .. Tabacco dependency : Once he has been smoking 3-4 cigars on a daily basis as of late. He has stopped using tobacco chew. He has nicotine patches available to him .. Alcohol dependency: Most recent liver enzymes elevated, Thought does admit to drinking 2 nips and a few glasses of wine per day. He does understand he needs to cut down drinking. 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 Hyperlipidemia: Most recent fasting lipid panel showing total cholesterol has improved from previous. Laboratory Tests 09/06/22 05/03/24 06:49 15:00 Fasting Glucose 110 H 83 Cholesterol 242 220 H PSA Screen 0.67 PFSH Medical History Chewing tobacco nicotine dependence Mitral regurgitation Osteoarthritis Elevated cholesterol HTN (hypertension) Transaminitis Alcohol use disorder, mild, abuse Surgical History Hx of colonoscopy Family History Brother Colon cancer Social History Housing: House Alcohol intake: current Alcohol intake frequency: 3 or more drinks per day Alcohol type: wine and hard liquor Patient Tobacco Use Status: Current everyday Tobacco user Tobacco use type: Cigar Cigarettes Per Day: 10 e-Cigarette/Vaping Use: Never Used Second Hand Smoke Exposure: No service: No Current occupational status: employed Current occupational exposures/hazards: No Cognitive needs: No Hearing needs: No Vision needs: No Questionnaire PHQ-9 Over the last 2 weeks, how often have you been bothered by any of the following problems? 1. Little interest or pleasure in doing things: not at all 2. Feeling down, depressed, or hopeless: not at all 3. Trouble falling or staying asleep, or sleeping too much: not at all 4. Feeling tired or having little energy: not at all 5. Poor appetite or overeating: not at all 6. Feeling bad about yourself - or that you are a failure or have let yourself or your family down: not at all 7. Trouble concentrating on things, such as reading the newspaper or watching television: not at all 8. Moving or speaking so slowly that other people could have noticed. Or the opposite - being so fidgety or restless that you have been moving around a lot more than usual: not at all 9. Thoughts that you would be better off or of hurting yourself in some way: not at all Total score: 0 Depression Screening Interpretation: Negative Depression Screening Done: Yes 06320 - PHQ-9 Billing: Yes Source: Developed by Drs. Víctor Handley, Aleena Loyd, Augustus Munguia and colleagues, with an educational clive from [employer]. Thrive Questionnaire Date Thrive assessed: 05/04/24 I am a: Patient What is your living situation today?: I have a steady place to live Within the past 12 months, did the food you bought not last and you didn't have the money to get more?: Never true Within the past 12 months, did you worry whether your food would run out before you got money to buy more?: Never true Do you have trouble paying for medicines?: No Do you have trouble getting transportation to medical appointments?: No Do you have trouble paying your heating and electricity bill?: No Do you have trouble taking care of your child, family member or friend?: No Do you have trouble with day-to-day activities such as bathing, preparing meals, shopping, managing finances, etc.?: No Are you currently unemployed and looking for a job?: No Are you interested in more education?: No Please select the resources that you would like help with: None Currently or been in a relationship where the following occur: No concerns reported THRIVE Score: 0 AUDIT C Alcohol Use Questionnaire (AUDIT-C) 1. How often do you have a drink containing alcohol?: 4 or more times a week 2. How many drinks containing alcohol do you have on a typical day when you are drinking?: 3 or 4 3. How often do you have six or more drinks on one occasion?: Never Total Score: 5 CAMRON-7 AMB Questionnaire CAMRON-7 Date CAMRON - 7 assessed: 05/04/24 Feeling nervous, anxious, or on edge: 0 = Not at all Not being able to stop or control worryin = Not at all Worrying too much about different things: 0 = Not at all Trouble relaxin = Not at all Being so restless that it is hard to sit still: 0 = Not at all Becoming easily annoyed or irritable: 0 = Not at all Feeling afraid as if something awful might happen: 0 = Not at all Total CAMRON-7 score (0-4 normal; 5-9 mild; 10-14 moderate; 15-21 severe): 0 Source: Developed by Drs. Víctor Handley, Aleena Loyd, Augustus Munguia and colleagues, with an educational clive from [employer]. CAMRON-7 Assessment Billing CAMRON-7 Assessment Tool: CAMRON-7 Assessment 54712 Review of Systems Const Denies headache(s) Eyes Denies loss of vision ENT Denies vertigo, Denies dizziness, Denies headache(s) and Denies sore throat Card Denies chest pain, Denies leg edema and Denies lightheadedness Resp Denies cough, Denies hemoptysis and Denies wheezing GI Denies abdominal pain, Denies melena, Denies constipation, Denies diarrhea and Denies vomiting Denies dysuria, Denies urinary frequency and Denies urinary urgency Musc Denies arthralgias, Denies joint swelling, Denies numbness and Denies tingling Neuro Denies Abnormal speech present, Denies behavioral changes, Denies vertigo, Denies dizziness, Denies headache(s), Denies loss of vision, Denies memory loss, Denies numbness and Denies tingling Psych Denies anxiety, Denies behavioral changes, Denies depression, Denies memory loss and Denies panic attacks Jung/Lymph Denies easy bleeding and Denies easy bruising Aller/Immun Denies wheezing Physical exam (Primary Care) Tobacco/Smoking Status: Tobacco use Status Tobacco use date assessed 05/04/24 05/04/24 14:43 Patient Tobacco Use Status Former Tobacco user 05/04/24 15:09 Tobacco use type Cigar,Smokeless Tobacco 05/04/24 15:09 e-Cigarette/Vaping Use Never Used 05/04/24 15:09 Are you ready to quit: Yes Tobacco cessation counseling provided: Yes Items discussed: Nicotine replacement Relapse Prevention: discussed the importance of a supportive environment, discussed negative mood or depression after quitting, weight gain after smoking is common and discussed dietary, exercise and/or lifestyle changes Number of minutes spent counselin CPT code: 87723 - 4-10 Minutes Depression Screening Interpretation: Negative Thrive Assessment: Date of Thrive Assessment Date Thrive assessed 05/04/24 05/04/24 14:43 Currently or been in a relationship where the following occur: No concerns reported Const General: healthy appearing, no acute distress, alert and awake Nutritional Appearance: well nourished Orientation/consciousness: oriented to person, oriented to place and oriented to time HENMT Ears: TM's normal bilaterally General nose exam: Normal nasal mucous membranes and turbinates present Eyes Conjunctivae: conjunctivae normal Sclerae: sclerae normal Pupils: Equal, round and reactive pupils present Neck Neck: Yes no lymphadenopathy and Yes no JVD Thyroid: Thyroid normal Carotids: no bruits Resp Effort & Inspection: normal respiratory effort and not tachypneic Auscultation: no crackles, no rales, no rhonchi and no wheezes Cardio Rate: regular rate Rhythm: regular rhythm Heart sounds: no murmurs and normal S1 and S2 GI Palpation (GI): Soft to palpation, nontender, no hepatomegaly and no splenomegaly Auscultation: normal bowel sounds Skin General skin exam: no rashes or lesions noted and dry skin Neuro General: oriented to person, oriented to place and oriented to time Cranial nerves: Yes Equal, round and reactive pupils present Speech: No Abnormal speech present Gait exam (Neuro): Normal gait present Motor exam (neuro): no tremor noted Extrem Right upper extremity: full ROM Left upper extremity: full ROM Right lower extremity: full ROM; no edema Left lower extremity: full ROM; no edema Psych Mental Status: mental status grossly normal Speech and movement: Normal speech and movement present Affect: normal affect Attitude: cooperative Thought process: Normal thought process present Coding Level of Care Code Est Pt Level 4 (69778) Diagnoses Primary hypertension I10 Hypertension type: primary hypertension Uncomplicated alcohol dependence F10.20 Substance use status: uncomplicated Tobacco dependence F17.200 Mixed hyperlipidemia E78.2 Hyperlipidemia type: mixed hyperlipidemia Gastroesophageal reflux disease without esophagitis K21.9 Esophagitis presence: without esophagitis Presbyopia of both eyes H52.4 Additional Codes CAMRON-7 Assessment Billing - CAMRON-7 Assessment Tool: CAMRON-7 Assessment 47674 ([id number]) PHQ-9 - 19715 - PHQ-9 Billing: Yes ([id number]) Vital Signs *Quality* - CPT code: 66139 - 4-10 Minutes ([id number]) Assessment & Plan Assessment & Plan (1) HTN (hypertension): Code(s): I10 - Essential (primary) hypertension Category: Medical Qualifiers: Hypertension type: primary hypertension Qualified Code(s): I10 - Essential (primary) hypertension Plan: Patient's blood pressure slightly elevated today in office. Again unfortunately still smoking and drinking which is likely contributing to elevations in his blood pressure. He continues with lisinopril hydrochlorothiazide. He does not monitor his blood pressure at home. Goal blood pressures to be below 140/90 (2) Alcohol dependence: Code(s): F10.20 - Alcohol dependence, uncomplicated Category: Medical Qualifiers: Substance use status: uncomplicated Qualified Code(s): F10.20 - Alcohol dependence, uncomplicated Plan: Patient does admit to having inhibit day in 2-3 glasses of wine in 2 hard liquor nips per day. Most recent liver enzymes elevated and he does understand this is likely due to his alcohol intake. He does understand he has a problem with alcohol and we did discuss starting naltrexone 50 mg daily though he would like to hold off on this for now and work on trying to reduce his alcohol intake on his own. He will try to cut down over the next 6 months and will recheck his labs. (3) Tobacco dependence: Code(s): F17.200 - Nicotine dependence, unspecified, uncomplicated Category: Medical Plan: He does report smoking 4-5 small cigars per day. He is interested in trying nicotine replacement again as he felt nicotine gum and patches work the best.. (4) HLD (hyperlipidemia): Code(s): E78.5 - Hyperlipidemia, unspecified Category: Medical Qualifiers: Hyperlipidemia type: mixed hyperlipidemia Qualified Code(s): E78.2 - Mixed hyperlipidemia Plan: Most recent lipid panel showing improved total cholesterol and LDL. He has been working on better eating habits. Goal LDL to be below 130 (5) GERD (gastroesophageal reflux disease): Code(s): K21.9 - Gastro-esophageal reflux disease without esophagitis Category: Medical Qualifiers: Esophagitis presence: without esophagitis Qualified Code(s): K21.9 - Gastro-esophageal reflux disease without esophagitis Plan: Has been having GERD symptoms recently due to poor eating habits. Will supply patient with omeprazole to use on an as needed basis. (6) Presbyopia of both eyes: Code(s): H52.4 - Presbyopia Category: Medical Plan: Patient interested in seeing eye doctor- he will try a local motion picture camera lens technician to have an eye exam Orders: Orders Complete Blood Count no Diff Today E78.2 - Mixed hyperlipidemia Prostate Specific Antigen Scr Today E78.2 - Mixed hyperlipidemia, Z12.5 - Encounter for screening for malignant neoplasm of prostate Ethanol Today F10.10 - Alcohol abuse, uncomplicated Microalbumin, Random (w Creat) Today I10 - Essential (primary) hypertension Comprehensive Ashley. Panel Fast Today I10 - Essential (primary) hypertension Lipid Panel Today E78.2 - Mixed hyperlipidemia
== END 2025-01-26 10:24 | disposition home or self-care (01) ==
LOC: HO.HMCH 09:52
PROVIDERS: PCP Physician Assistant; Visit Provider Physician Assistant
DX: I10 Essential (primary) hypertension (principal); F10.20 Alcohol dependence, uncomplicated; F17.200 Nicotine dependence, unspecified, uncomplicated; E78.2 Mixed hyperlipidemia; K21.9 Gastro-esophageal reflux disease without esophagitis; H52.4 Presbyopia

== ENCOUNTER → 2025-01-26 09:51 | Outpatient (BNVA) | payer OTHER, SELFPAY | PROVIDERS: PCP Physician Assistant; Visit Provider Physician Assistant | DX: I10 Essential (primary) hypertension (principal); M17.12 Unilateral primary osteoarthritis, left knee; E78.5 Hyperlipidemia, unspecified; E78.2 Mixed hyperlipidemia; K21.9 Gastro-esophageal reflux disease without esophagitis; H52.4 Presbyopia; F10.20 Alcohol dependence, uncomplicated; F17.290 Nicotine dependence, other tobacco product, uncomplicated | CPT/HCPCS: 96127 ==